=== PATIENT | female | born 1990 | race Caucasian/White ===

== ENCOUNTER 2017-05-27 23:57 | Emergency (ER) | payer MEDICARE, OTHER ==
[~2017-05-27] VITALS: Ht 180.3 cm; Wt 176.4 kg
[~2017-05-27 23:57] MED LIST: ALBU90OI INH; AMLO5 PO; BP MED; CEPH500 PO; CYCL10 PO; Cyclobenzaprine5 MG PO; HYDR1TAB94 PO; IBUP600 PO; IBUP800 PO; Imitrex25 MG PO; LORTAB 7.5-3251 EACH PO; Norco 5-325 Ta1 EACH PO; Pyridium200 MG PO; SUMA25 PO; SUMA6I SC; Zofran Odt4 MG SL
[2017-05-28 02:34] LABS: Source, Urine Clean Catch
[2017-05-28 02:37] LABS: Bilirubin, Urine Neg (Neg); Blood, Urine 3+ (Neg); Glucose Qualitative, Urine 4+ (Neg); Ketones, Urine 1+ (Neg); Leukocyte Esterase, Urine 2+ (Neg); Nitrite, Urine Neg (Neg); Protein, Urine 2+ (Neg); Specific Gravity, Urine 1.025 (1.003-1.022); Urobilinogen, Urine NORM (Normal)
[2017-05-28 02:38] LABS: Appearance, Urine Hazy (Clear); Color, Urine Yellow (P-Yellow)
[2017-05-28 02:45] LABS: Bacteria Mod /hpf; Mucus Light (0-Heavy); Red Blood Cells, Urine 0-2 /hpf (0-2); Squamous Epithelial Cells Mod /hpf (Few)
[2017-05-28] MEDS ORDERED: NYATA15 GM TOP (03:46)
== END 2017-05-28 03:52 | disposition home or self-care (01) ==
LOC: ER 23:57
PROVIDERS: Emergency Medicine
DX: B37.49 Other urogenital candidiasis (principal); Z88.8 Allergy status to other drugs, medicaments and biological substances; Z79.899 Other long term (current) drug therapy
CPT/HCPCS: 81001; 81025; 87086; 99284

== ENCOUNTER → 2017-06-08 | Outpatient (CLI) | payer MEDICARE, OTHER ==
[~2017-06-08] MED LIST changes: +NYATA15 GM TOP
[2017-06-08 15:37] LABS: Specimen Source CERVIX
[2017-06-09 09:55] LABS: Candida species (DNA Probe) Negative (NEGATIVE); G. vaginalis (DNA Probe) Negative (NEGATIVE); T. vaginalis (DNA Probe) Negative (NEGATIVE)
[2017-06-09 13:23] LABS: Source Cervix
== END ==
LOC: LAB 15:02
PROVIDERS: Obstetrics & Gynecology
DX: Z11.3 Encounter for screening for infections with a predominantly sexual mode of transmission (principal); N76.0 Acute vaginitis
CPT/HCPCS: 87480; 87491; 87510; 87591; 87660

== ENCOUNTER → 2017-10-04 | Outpatient (CLI) | payer MEDICARE, OTHER ==
[2017-10-04 17:56] LABS: Protein, Urine Quantitative 7.4 mg/dL (0.0-11.9)
[2017-10-04 17:58] LABS: Microalbumin, Urine Quant. 14.5 mg/L (0.000-20.000)
== END | disposition home or self-care (01) ==
LOC: LAB 13:45 → LAB SHORT 13:45 → LAB FUT 03-31 13:55
PROVIDERS: Internal Medicine Nephrology
DX: N18.2 Chronic kidney disease, stage 2 (mild) (principal); D63.1 Anemia in chronic kidney disease; N25.81 Secondary hyperparathyroidism of renal origin; E55.9 Vitamin D deficiency, unspecified; E78.00 Pure hypercholesterolemia, unspecified; R76.9 Abnormal immunological finding in serum, unspecified; R94.5 Abnormal results of liver function studies; R94.6 Abnormal results of thyroid function studies
CPT/HCPCS: 81050; 82043; 84156

== ENCOUNTER → 2017-11-30 | Outpatient (CLI) | payer MEDICARE, OTHER ==
[2017-11-30 12:59] LABS: U Amphetamine Screen Not Detected; U Barbituate Screen Not Detected; U Benzodiazapine Screen Not Detected; U Buprenorphine Screen Not Detected; U Cannabinoids Screen Not Detected; U Cocaine Screen Not Detected; U Methadone Screen Not Detected; U Methamphetamine Screen Not Detected; U Opiates Screen DETECTED; U Oxycodone Screen Not Detected; U Phencyclidine Screen Not Detected; U Propoxyphene Screen Not Detected
== END | disposition home or self-care (01) ==
LOC: LAB 12:28 → LAB SHORT 12:28
PROVIDERS: Internal Medicine Hematology & Oncology
DX: Z51.81 Encounter for therapeutic drug level monitoring (principal); Z79.899 Other long term (current) drug therapy
CPT/HCPCS: G0480

== ENCOUNTER → 2018-05-24 | Outpatient (CLI) | payer MEDICARE, OTHER ==
[2018-05-24 17:39] LABS: U Amphetamine Screen Not Detected; U Barbituate Screen Not Detected; U Benzodiazapine Screen Not Detected; U Buprenorphine Screen Not Detected; U Cannabinoids Screen Not Detected; U Cocaine Screen Not Detected; U Methadone Screen Not Detected; U Methamphetamine Screen Not Detected; U Opiates Screen Not Detected; U Oxycodone Screen Not Detected; U Phencyclidine Screen Not Detected; U Propoxyphene Screen Not Detected
== END ==
LOC: LAB SHORT 16:43 → LAB 16:43
PROVIDERS: Internal Medicine Hematology & Oncology
DX: Z51.81 Encounter for therapeutic drug level monitoring (principal); Z79.899 Other long term (current) drug therapy

== ENCOUNTER → 2018-08-16 | Outpatient (CLI) | payer MEDICARE, OTHER ==
[2018-08-16 18:25] LABS: U Amphetamine Screen Not Detected; U Barbituate Screen Not Detected; U Benzodiazapine Screen Not Detected; U Buprenorphine Screen Not Detected; U Cannabinoids Screen Not Detected; U Cocaine Screen Not Detected; U Methadone Screen Not Detected; U Methamphetamine Screen Not Detected; U Opiates Screen DETECTED; U Oxycodone Screen Not Detected; U Phencyclidine Screen Not Detected; U Propoxyphene Screen Not Detected
== END | disposition home or self-care (01) ==
LOC: LAB SHORT 16:55 → LAB 16:55
PROVIDERS: Internal Medicine Hematology & Oncology
DX: Z51.81 Encounter for therapeutic drug level monitoring (principal); F11.20 Opioid dependence, uncomplicated; Z79.899 Other long term (current) drug therapy

== ENCOUNTER 2019-04-24 08:00 | Emergency (ER) | payer MEDICARE, OTHER ==
[~2019-04-24] VITALS: Ht 180.3 cm; Wt 152.9 kg
[~2019-04-24 08:00] MED LIST changes: +Prednisone20 MG PO; +Zithromax250 MG PO
[2019-04-24] MEDS ORDERED: CYCL10 PO (09:47)
== END 2019-04-24 09:55 | disposition home or self-care (01) ==
LOC: ER 08:00
DX: S80.02XA Contusion of left knee, initial encounter (principal); Z88.8 Allergy status to other drugs, medicaments and biological substances; Z79.899 Other long term (current) drug therapy; Z79.891 Long term (current) use of opiate analgesic; Z79.52 Long term (current) use of systemic steroids; I10 Essential (primary) hypertension; E11.9 Type 2 diabetes mellitus without complications; E78.00 Pure hypercholesterolemia, unspecified; F17.200 Nicotine dependence, unspecified, uncomplicated; W19.XXXA Unspecified fall, initial encounter
CPT/HCPCS: 73564; 73610; 99283-25

== ENCOUNTER 2019-05-29 01:06 | Emergency (ER) | payer MEDICARE, OTHER ==
[~2019-05-29] VITALS: Ht 180.3 cm; Wt 154.7 kg
[2019-05-29] MEDS ORDERED: BENZ100A PO (02:47)
== END 2019-05-29 03:16 | disposition home or self-care (01) ==
LOC: ER 01:06
DX: J06.9 Acute upper respiratory infection, unspecified (principal); J45.909 Unspecified asthma, uncomplicated; I10 Essential (primary) hypertension; E11.9 Type 2 diabetes mellitus without complications; E78.00 Pure hypercholesterolemia, unspecified; F17.210 Nicotine dependence, cigarettes, uncomplicated; Z88.8 Allergy status to other drugs, medicaments and biological substances; Z79.899 Other long term (current) drug therapy; Z79.51 Long term (current) use of inhaled steroids
CPT/HCPCS: 71046; 94640; 99283-25

== ENCOUNTER → 2020-07-08 | Outpatient (CLI) | payer MEDICARE, OTHER ==
[~2020-07-08] MED LIST changes: +ATOR10 PO; +BENZ100A PO; +Bentyl20 MG PO; +DIPATR PO; +DOXY100 PO; +GLIM2 PO; +METF500 PO; +Prozac20 MG PO
[2020-07-08 15:47] LABS: U Amphetamine Screen Not Detected; U Barbituate Screen Not Detected; U Benzodiazapine Screen Not Detected; U Buprenorphine Screen Not Detected; U Cannabinoids Screen Not Detected; U Cocaine Screen Not Detected; U Methadone Screen Not Detected; U Methamphetamine Screen Not Detected; U Opiates Screen DETECTED; U Oxycodone Screen Not Detected; U Phencyclidine Screen Not Detected; U Propoxyphene Screen Not Detected
== END | disposition home or self-care (01) ==
LOC: PLD 11:20 → LAB SHORT 11:20
PROVIDERS: Internal Medicine Hematology & Oncology
DX: Z51.81 Encounter for therapeutic drug level monitoring (principal); Z79.899 Other long term (current) drug therapy

== ENCOUNTER → 2021-11-25 | Outpatient (CLI) | payer MEDICARE, OTHER ==
[2021-11-25 19:38] LABS: U Amphetamine Screen Not Detected; U Barbituate Screen Not Detected; U Benzodiazapine Screen Not Detected; U Buprenorphine Screen Not Detected; U Cannabinoids Screen Not Detected; U Cocaine Screen Not Detected; U Methadone Screen Not Detected; U Methamphetamine Screen Not Detected; U Opiates Screen DETECTED; U Oxycodone Screen Not Detected; U Phencyclidine Screen Not Detected; U Propoxyphene Screen Not Detected
== END | disposition home or self-care (01) ==
LOC: LAB SHORT 13:29 → LAB 13:29
PROVIDERS: Internal Medicine Hematology & Oncology
DX: Z51.81 Encounter for therapeutic drug level monitoring (principal); Z79.899 Other long term (current) drug therapy
CPT/HCPCS: G0480

== ENCOUNTER → 2022-01-27 | Outpatient (CLI) | payer MEDICARE, OTHER ==
[2022-01-27 19:02] LABS: U Amphetamine Screen Not Detected; U Barbituate Screen Not Detected; U Benzodiazapine Screen Not Detected; U Buprenorphine Screen Not Detected; U Cannabinoids Screen Not Detected; U Cocaine Screen Not Detected; U Methadone Screen Not Detected; U Methamphetamine Screen Not Detected; U Opiates Screen DETECTED; U Oxycodone Screen Not Detected; U Phencyclidine Screen Not Detected; U Propoxyphene Screen Not Detected
== END | disposition home or self-care (01) ==
LOC: LAB SHORT 16:38
PROVIDERS: Internal Medicine Hematology & Oncology
DX: Z51.81 Encounter for therapeutic drug level monitoring (principal); Z79.899 Other long term (current) drug therapy

== ENCOUNTER → 2022-02-26 | Outpatient (CLI) | payer MEDICARE, OTHER ==
[2022-02-26 18:17] LABS: U Amphetamine Screen Not Detected; U Barbituate Screen Not Detected; U Benzodiazapine Screen Not Detected; U Buprenorphine Screen Not Detected; U Cannabinoids Screen Not Detected; U Cocaine Screen Not Detected; U Methadone Screen Not Detected; U Methamphetamine Screen Not Detected; U Opiates Screen DETECTED; U Oxycodone Screen Not Detected; U Phencyclidine Screen Not Detected; U Propoxyphene Screen Not Detected
== END | disposition home or self-care (01) ==
LOC: LAB 16:02 → LAB SHORT 16:02
PROVIDERS: Internal Medicine Hematology & Oncology
DX: Z51.81 Encounter for therapeutic drug level monitoring (principal); Z79.899 Other long term (current) drug therapy
CPT/HCPCS: G0480

== ENCOUNTER → 2022-03-30 | Outpatient (CLI) | payer MEDICARE, OTHER ==
[2022-03-30 18:50] LABS: U Amphetamine Screen Not Detected; U Barbituate Screen Not Detected; U Benzodiazapine Screen Not Detected; U Buprenorphine Screen Not Detected; U Cannabinoids Screen Not Detected; U Cocaine Screen Not Detected; U Methadone Screen Not Detected; U Methamphetamine Screen Not Detected; U Opiates Screen DETECTED; U Oxycodone Screen Not Detected; U Phencyclidine Screen Not Detected; U Propoxyphene Screen Not Detected
== END | disposition home or self-care (01) ==
LOC: LAB 16:56 → LAB SHORT 16:56
PROVIDERS: Internal Medicine Hematology & Oncology
DX: L97.519 Non-pressure chronic ulcer of other part of right foot with unspecified severity (principal); Z79.899 Other long term (current) drug therapy

== ENCOUNTER → 2022-04-30 | Outpatient (CLI) | payer MEDICARE, OTHER ==
[2022-04-30 18:21] LABS: U Amphetamine Screen Not Detected; U Barbituate Screen Not Detected; U Benzodiazapine Screen Not Detected; U Buprenorphine Screen Not Detected; U Cannabinoids Screen Not Detected; U Cocaine Screen Not Detected; U Methadone Screen Not Detected; U Methamphetamine Screen Not Detected; U Opiates Screen DETECTED; U Oxycodone Screen Not Detected; U Phencyclidine Screen Not Detected; U Propoxyphene Screen Not Detected
== END | disposition home or self-care (01) ==
LOC: LAB SHORT 15:07
PROVIDERS: Internal Medicine Hematology & Oncology
DX: Z51.81 Encounter for therapeutic drug level monitoring (principal); Z79.899 Other long term (current) drug therapy

== ENCOUNTER → 2022-06-05 | Outpatient (CLI) | payer MEDICARE, OTHER ==
[2022-06-05 18:42] LABS: U Amphetamine Screen Not Detected; U Barbituate Screen Not Detected; U Benzodiazapine Screen Not Detected; U Buprenorphine Screen Not Detected; U Cannabinoids Screen Not Detected; U Cocaine Screen Not Detected; U Methadone Screen Not Detected; U Methamphetamine Screen Not Detected; U Opiates Screen DETECTED; U Oxycodone Screen DETECTED; U Phencyclidine Screen Not Detected; U Propoxyphene Screen Not Detected
== END | disposition home or self-care (01) ==
LOC: LAB SHORT 15:37
PROVIDERS: Internal Medicine Hematology & Oncology
DX: Z51.81 Encounter for therapeutic drug level monitoring (principal); Z79.899 Other long term (current) drug therapy

== ENCOUNTER → 2022-07-10 | Outpatient (CLI) | payer MEDICARE, OTHER ==
[2022-07-10 15:58] LABS: U Amphetamine Screen Not Detected; U Barbituate Screen Not Detected; U Benzodiazapine Screen Not Detected; U Buprenorphine Screen Not Detected; U Cannabinoids Screen Not Detected; U Cocaine Screen Not Detected; U Methadone Screen Not Detected; U Methamphetamine Screen Not Detected; U Opiates Screen DETECTED; U Oxycodone Screen Not Detected; U Phencyclidine Screen Not Detected; U Propoxyphene Screen Not Detected
== END | disposition home or self-care (01) ==
LOC: LAB SHORT 12:13
PROVIDERS: Internal Medicine Hematology & Oncology
DX: Z51.81 Encounter for therapeutic drug level monitoring (principal); Z79.899 Other long term (current) drug therapy

== ENCOUNTER → 2022-08-13 | Outpatient (CLI) | payer MEDICARE, OTHER ==
[2022-08-13 20:02] LABS: U Amphetamine Screen Not Detected; U Barbituate Screen Not Detected; U Benzodiazapine Screen Not Detected; U Buprenorphine Screen Not Detected; U Cannabinoids Screen Not Detected; U Cocaine Screen Not Detected; U Methadone Screen Not Detected; U Methamphetamine Screen Not Detected; U Opiates Screen DETECTED; U Oxycodone Screen Not Detected; U Phencyclidine Screen Not Detected; U Propoxyphene Screen Not Detected
== END | disposition home or self-care (01) ==
LOC: LAB 17:05 → LAB SHORT 17:05
PROVIDERS: Internal Medicine Hematology & Oncology
DX: Z51.81 Encounter for therapeutic drug level monitoring (principal); Z79.899 Other long term (current) drug therapy

== ENCOUNTER → 2022-10-15 | Outpatient (CLI) | payer MEDICARE, OTHER ==
[2022-10-15 19:38] LABS: BASOPHILS ABSOLUTE AUTO 0.09 K/mm3 (0.00-0.23); BASOPHILS PERCENT AUTO 1 % (0-2); EOSINOPHILS ABSOLUTE AUTO 0.34 K/mm3 (0.00-0.68); EOSINOPHILS PERCENT AUTO 4 % (0-6); Hematocrit 46.2 % (33.0-51.0); Hemoglobin 15.2 g/dL (11.5-16.0); IMMATURE GRAN ABSOLUTE AUTO 0.03 K/mm3 (0.00-0.10); IMMATURE GRAN PERCENT AUTO 0 % (0-1); LYMPHOCYTES ABSOLUTE AUTO 4.06 K/mm3 (0.84-5.20); LYMPHOCYTES PERCENT AUTO 42 % (21-46); MONOCYTES ABSOLUTE AUTO 0.47 K/mm3 (0.16-1.47); MONOCYTES PERCENT AUTO 5 % (4-13); Mean Corpuscular HGB 29.7 pg (26.0-34.0); Mean Corpuscular HGB Conc 32.9 g/dL (31.5-36.5); Mean Corpuscular Volume 90 fL (80-100); Mean Platelet Volume 12.2 fL (9.1-12.4); NEUTROPHILS ABSOLUTE AUTO 4.64 K/mm3 (1.96-9.15); NEUTROPHILS PERCENT AUTO 48 % (41-73); Platelet Count 205 K/mm3 (150-400); RDW Coefficient Variation 11.8 % (11.7-14.2); RDW Standard Deviation 39.3 fL (35.1-46.3); Red Blood Cell Count 5.12 M/mm3 (3.80-5.20); White Blood Cell Count 9.63 K/mm3 (4.00-11.30)
[2022-10-15 19:48] LABS: Alanine Aminotransfer (ALT/SGP 19 U/L (12-78); Albumin, Blood 3.5 g/dL (3.4-5.0); Albumin/Globulin Ratio 0.9 (0.8-1.8); Alk Phos 59 U/L (50-136); Anion Gap 7 mmol/L (6-16); Aspartate Aminotrans (AST/SGOT 10 U/L (12-37); Bilirubin, Total 0.3 mg/dL (0.1-1.0); Blood Urea Nitrogen 12 mg/dL (8-24); CHOL/HDL RATIO 7.2; CO2, Blood 25 mmol/L (21-32); Chloride, Blood 108 mmol/L (98-108); Cholesterol 236 mg/dL (50-200); Glomerular Filtration Rate 127 (60-); Glucose, Blood 233 mg/dL (70-99); HDL Cholesterol 33 mg/dL (>39); LDL/HDL RATIO 4.7; Low Density Lipoprotein Chol 156 mg/dL (0-110); Phosphorus, Blood 3.8 mg/dL (2.5-4.9); Potassium, Blood 4.5 mmol/L (3.5-5.5); Sodium, Blood 140 mmol/L (136-145); Total Protein, Blood 7.5 g/dL (6.4-8.2); Triglycerides 233 mg/dL (30-140); Very Low Density Lipoprot Chol 46 mg/dL (6-28)
== END | disposition home or self-care (01) ==
LOC: LAB 18:43 → LAB SHORT 18:43
PROVIDERS: Internal Medicine Hematology & Oncology
DX: E11.65 Type 2 diabetes mellitus with hyperglycemia (principal); E78.2 Mixed hyperlipidemia
CPT/HCPCS: 80053; 80061; 83036; 84100; 85025

== ENCOUNTER → 2022-11-12 | Outpatient (CLI) | payer MEDICARE, OTHER ==
[2022-11-12 19:27] LABS: U Amphetamine Screen Not Detected; U Barbituate Screen Not Detected; U Benzodiazapine Screen Not Detected; U Buprenorphine Screen Not Detected; U Cannabinoids Screen Not Detected; U Cocaine Screen Not Detected; U Methadone Screen Not Detected; U Methamphetamine Screen Not Detected; U Opiates Screen DETECTED; U Oxycodone Screen Not Detected; U Phencyclidine Screen Not Detected; U Propoxyphene Screen Not Detected
== END ==
LOC: LAB SHORT 18:11 → LAB 18:11
PROVIDERS: Internal Medicine Hematology & Oncology
DX: Z51.81 Encounter for therapeutic drug level monitoring (principal); Z79.899 Other long term (current) drug therapy
CPT/HCPCS: G0480

== ENCOUNTER 2023-01-25 23:57 | Emergency (ER) | payer MEDICARE, OTHER ==
[~2023-01-25] VITALS: Ht 180.3 cm; Wt 136.5 kg
[2023-01-26 01:36] LABS: BASOPHILS ABSOLUTE AUTO 0.08 K/mm3 (0.00-0.23); BASOPHILS PERCENT AUTO 1 % (0-2); EOSINOPHILS ABSOLUTE AUTO 0.28 K/mm3 (0.00-0.68); EOSINOPHILS PERCENT AUTO 2 % (0-6); Hematocrit 43.3 % (33.0-51.0); Hemoglobin 14.7 g/dL (11.5-16.0); IMMATURE GRAN ABSOLUTE AUTO 0.05 K/mm3 (0.00-0.10); IMMATURE GRAN PERCENT AUTO 0 % (0-1); LYMPHOCYTES ABSOLUTE AUTO 4.09 K/mm3 (0.84-5.20); LYMPHOCYTES PERCENT AUTO 31 % (21-46); MONOCYTES ABSOLUTE AUTO 0.62 K/mm3 (0.16-1.47); MONOCYTES PERCENT AUTO 5 % (4-13); Mean Corpuscular HGB 30.6 pg (26.0-34.0); Mean Corpuscular HGB Conc 33.9 g/dL (31.5-36.5); Mean Corpuscular Volume 90 fL (80-100); Mean Platelet Volume 11.4 fL (9.1-12.4); NEUTROPHILS ABSOLUTE AUTO 8.15 K/mm3 (1.96-9.15); NEUTROPHILS PERCENT AUTO 61 % (41-73); Platelet Count 242 K/mm3 (150-400); RDW Coefficient Variation 11.9 % (11.7-14.2); RDW Standard Deviation 39.3 fL (35.1-46.3); White Blood Cell Count 13.27 K/mm3 (4.00-11.30)
[2023-01-26 01:54] LABS: Albumin, Blood 3.3 g/dL (3.4-5.0); Albumin/Globulin Ratio 0.7 (0.8-1.8); Bilirubin, Total 0.2 mg/dL (0.1-1.0); Bun/Creatinine Ratio 20.8 (12.0-20.0); Calcium, Blood 8.7 mg/dL (8.5-10.1); Creatinine, Blood 0.63 mg/dL (0.40-1.00); Globulin, Blood 4.7 g/dL (2.2-4.0)
[2023-01-26] MEDS ORDERED: Bactrim Ds Tab1 EACH PO (04:42)
[2023-01-26 05:07] VITALS: BP 154/85
== END 2023-01-26 05:05 | disposition home or self-care (01) ==
LOC: ER 23:57
PROVIDERS: Student in an Organized Health Care Education/Training Program
DX: E11.621 Type 2 diabetes mellitus with foot ulcer (principal); L97.519 Non-pressure chronic ulcer of other part of right foot with unspecified severity; Z88.8 Allergy status to other drugs, medicaments and biological substances; Z79.899 Other long term (current) drug therapy; Z79.84 Long term (current) use of oral hypoglycemic drugs; I10 Essential (primary) hypertension; E78.00 Pure hypercholesterolemia, unspecified; F17.210 Nicotine dependence, cigarettes, uncomplicated
CPT/HCPCS: 73630; 73701; 80053; 83605; 84145; 85025; 85651; 96360-59; 99284-25; A9270; J7120; Q9967

== ENCOUNTER → 2023-03-16 | Outpatient (CLI) | payer MEDICARE, OTHER ==
[~2023-03-16] MED LIST changes: +Bactrim Ds Tab1 EACH PO
[2023-03-17 12:39] LABS: U Amphetamine Screen Not Detected; U Barbituate Screen Not Detected; U Benzodiazapine Screen Not Detected; U Buprenorphine Screen Not Detected; U Cannabinoids Screen Not Detected; U Cocaine Screen Not Detected; U Methadone Screen Not Detected; U Methamphetamine Screen Not Detected; U Opiates Screen DETECTED; U Oxycodone Screen DETECTED; U Phencyclidine Screen Not Detected; U Propoxyphene Screen Not Detected
== END ==
LOC: LAB SHORT 12:00 → LAB 12:00
PROVIDERS: Internal Medicine Hematology & Oncology
DX: L97.519 Non-pressure chronic ulcer of other part of right foot with unspecified severity (principal); R30.0 Dysuria; Z79.899 Other long term (current) drug therapy
CPT/HCPCS: 87086

== ENCOUNTER → 2023-05-19 | Outpatient (CLI) | payer MEDICARE, OTHER ==
[2023-05-19 19:28] LABS: U Amphetamine Screen Not Detected; U Barbituate Screen Not Detected; U Benzodiazapine Screen Not Detected; U Buprenorphine Screen Not Detected; U Cannabinoids Screen Not Detected; U Cocaine Screen Not Detected; U Methadone Screen Not Detected; U Methamphetamine Screen Not Detected; U Opiates Screen DETECTED; U Oxycodone Screen Not Detected; U Phencyclidine Screen Not Detected
== END ==
LOC: LAB SHORT 17:25 → LAB 17:25
PROVIDERS: Internal Medicine Hematology & Oncology
DX: L97.519 Non-pressure chronic ulcer of other part of right foot with unspecified severity (principal); Z79.899 Other long term (current) drug therapy

== ENCOUNTER → 2023-06-16 | Outpatient (CLI) | payer MEDICARE, OTHER ==
[2023-06-16 16:32] LABS: U Amphetamine Screen Not Detected; U Barbituate Screen Not Detected; U Benzodiazapine Screen Not Detected; U Buprenorphine Screen Not Detected; U Cannabinoids Screen Not Detected; U Cocaine Screen Not Detected; U Methadone Screen Not Detected; U Methamphetamine Screen Not Detected; U Opiates Screen DETECTED; U Oxycodone Screen Not Detected; U Phencyclidine Screen Not Detected
== END | disposition home or self-care (01) ==
LOC: LAB SHORT 11:01 → LAB 11:01
PROVIDERS: Internal Medicine Hematology & Oncology
DX: Z51.81 Encounter for therapeutic drug level monitoring (principal); Z79.899 Other long term (current) drug therapy

== ENCOUNTER → 2023-08-30 | Outpatient (CLI) | payer MEDICARE ==
[2023-08-30 20:17] LABS: U Amphetamine Screen Not Detected; U Barbituate Screen Not Detected; U Benzodiazapine Screen Not Detected; U Buprenorphine Screen Not Detected; U Cannabinoids Screen Not Detected; U Cocaine Screen Not Detected; U Methadone Screen Not Detected; U Methamphetamine Screen Not Detected; U Opiates Screen DETECTED; U Oxycodone Screen Not Detected; U Phencyclidine Screen Not Detected
== END | disposition home or self-care (01) ==
LOC: LAB 15:30 → LAB SHORT 15:30
PROVIDERS: Internal Medicine Hematology & Oncology
DX: Z51.81 Encounter for therapeutic drug level monitoring (principal); Z79.899 Other long term (current) drug therapy

== ENCOUNTER → 2023-11-04 | Outpatient (CLI) | payer MEDICARE ==
[2023-11-04 18:33] LABS: U Amphetamine Screen Not Detected; U Barbituate Screen Not Detected; U Benzodiazapine Screen Not Detected; U Buprenorphine Screen Not Detected; U Cannabinoids Screen Not Detected; U Cocaine Screen Not Detected; U Methadone Screen Not Detected; U Methamphetamine Screen Not Detected; U Opiates Screen DETECTED; U Oxycodone Screen Not Detected; U Phencyclidine Screen Not Detected
== END ==
LOC: LAB SHORT 14:43 → LAB 14:43
PROVIDERS: Internal Medicine Hematology & Oncology
DX: Z51.81 Encounter for therapeutic drug level monitoring (principal); Z79.899 Other long term (current) drug therapy

== ENCOUNTER → 2024-02-03 | Outpatient (CLI) | payer MEDICARE ==
[2024-02-04 19:54] LABS: U Amphetamine Screen Not Detected; U Barbituate Screen Not Detected; U Benzodiazapine Screen Not Detected; U Buprenorphine Screen Not Detected; U Cannabinoids Screen Not Detected; U Cocaine Screen Not Detected; U Methadone Screen Not Detected; U Methamphetamine Screen Not Detected; U Opiates Screen DETECTED; U Oxycodone Screen Not Detected; U Phencyclidine Screen Not Detected
== END ==
LOC: LAB SHORT 18:06 → LAB 18:06
PROVIDERS: Internal Medicine Hematology & Oncology
DX: Z51.81 Encounter for therapeutic drug level monitoring (principal); Z79.899 Other long term (current) drug therapy; E11.65 Type 2 diabetes mellitus with hyperglycemia; G89.29 Other chronic pain

== ENCOUNTER → 2024-04-19 | Outpatient (CLI) | payer MEDICARE ==
[2024-04-20 14:44] LABS: U Amphetamine Screen Not Detected; U Barbituate Screen Not Detected; U Benzodiazapine Screen Not Detected; U Buprenorphine Screen Not Detected; U Cannabinoids Screen Not Detected; U Cocaine Screen Not Detected; U Methadone Screen Not Detected; U Methamphetamine Screen Not Detected; U Opiates Screen DETECTED; U Oxycodone Screen Not Detected; U Phencyclidine Screen Not Detected
== END | disposition home or self-care (01) ==
LOC: LAB 16:30 → LAB SHORT 16:30
PROVIDERS: Internal Medicine Hematology & Oncology
DX: E11.65 Type 2 diabetes mellitus with hyperglycemia (principal); Z79.899 Other long term (current) drug therapy

== ENCOUNTER → 2024-05-25 | Outpatient (CLI) | payer MEDICARE ==
[2024-05-25 19:28] LABS: U Amphetamine Screen Not Detected; U Barbituate Screen Not Detected; U Benzodiazapine Screen Not Detected; U Buprenorphine Screen Not Detected; U Cannabinoids Screen Not Detected; U Cocaine Screen Not Detected; U Methadone Screen Not Detected; U Methamphetamine Screen Not Detected; U Opiates Screen DETECTED; U Oxycodone Screen Not Detected; U Phencyclidine Screen Not Detected
== END ==
LOC: LAB 18:38 → LAB SHORT 18:38
PROVIDERS: Internal Medicine Hematology & Oncology
DX: Z51.81 Encounter for therapeutic drug level monitoring (principal); Z79.899 Other long term (current) drug therapy

== ENCOUNTER 2024-08-28 16:20 | Inpatient (IN) | payer MEDICARE, OTHER ==
[~2024-08-28] VITALS: Ht 180.3 cm; Wt 142.3 kg
[2024-08-28 17:10] LABS: Hematocrit 33.4 % (33.0-51.0); Mean Corpuscular HGB 28.3 pg (26.0-34.0); Mean Corpuscular HGB Conc 32.9 g/dL (31.5-36.5); Mean Corpuscular Volume 86 fL (80-100); Mean Platelet Volume 12.1 fL (9.1-12.4); NRBC ABSOLUTE 0.07 K/mm3 (0.00-0.02); NRBC Auto 0.4 /100 WBC (0.0-0.2); Platelet Count 258 K/mm3 (150-400); RDW Coefficient Variation 15.1 % (11.7-14.2); RDW Standard Deviation 47.1 fL (35.1-46.3); Red Blood Cell Count 3.89 M/mm3 (3.80-5.20); White Blood Cell Count 16.64 K/mm3 (4.00-11.30)
[2024-08-28] MEDS ORDERED: ATOR40TA PO (17:24)
[2024-08-28] MEDS ORDERED: METFORMIN HCL500 M2 PO (17:25)
[2024-08-28] MEDS ORDERED: FLUC200 PO (17:26)
[2024-08-28] MEDS ORDERED: HYDROCODONE-AC1 EAC7 PO (17:26)
[2024-08-28] MEDS ORDERED: Cefepime HCl 2,000 MG in NS 100 ML IV ONE (17:30)
[2024-08-28] MEDS ORDERED: Lactated Ringer's 1,000 ML IV SCH (17:30)
[2024-08-28] MEDS ORDERED: Vancomycin HCL 2,500 MG in NS 500 ML IV ONE (17:35)
[2024-08-28 17:49] LABS: Albumin, Blood 1.3 g/dL (3.4-5.0); Albumin/Globulin Ratio 0.2 (0.8-1.8); Bilirubin, Total 0.6 mg/dL (0.1-1.0); Bun/Creatinine Ratio 57.6 (12.0-20.0); Calcium, Blood 8.1 mg/dL (8.5-10.1); Creatinine, Blood 0.38 mg/dL (0.40-1.00); Globulin, Blood 6.2 g/dL (2.2-4.0); Phosphorus, Blood 3.3 mg/dL (2.5-4.9); Potassium, Blood 4.3 mmol/L (3.5-5.5); Total Protein, Blood 7.5 g/dL (6.4-8.2)
[2024-08-28 17:55] LABS: Base Excess Venous 7.6 mmol/L; Bicarbonate Venous 30.9 mmol/L (24.0-30.0); PCO2 Venous 37.4 mmHg (38-42); pH Blood Venous 7.52 (7.34-7.37)
[2024-08-28 17:56] LABS: International Normalized Ratio 1.61; Prothrombin Time Results 16.6 Sec (9.7-11.5)
[2024-08-28] MEDS ORDERED: HYDROmorphone HCl/Pf 1MG SYR IV ONE (19:20)
[2024-08-28 19:35] LABS: BAND PERCENT MAN 15 % (0-8); BASOPHILS PERCENT MAN 0 % (0-2); EOSINOPHILS ABSOLUTE MAN 0.16 K/mm3 (0.00-0.68); EOSINOPHILS PERCENT MAN 1 % (0-6); LYMPHOCYTES ABSOLUTE MAN 1.99 K/mm3 (0.84-5.20); LYMPHOCYTES PERCENT MAN 12 % (21-46); METAMYELOCYTE ABSOLUTE MAN 1.16 K/mm3 (0.00-0.00); METAMYELOCYTE PERCENT MAN 7 % (0-0); MONOCYTES ABSOLUTE MAN 0.33 K/mm3 (0.16-1.47); MONOCYTES PERCENT MAN 2 % (4-13); MYELOCYTE ABSOLUTE MAN 0.66 K/mm3 (0.00-0.00); MYELOCYTE PERCENT MAN 4 % (0-0); NEUTROPHILS ABSOLUTE MAN 12.31 K/mm3 (1.96-9.15); SEG NEUTROPHILS PERCENT MAN 59 % (41-73); TOTAL CELLS COUNTED 100
[2024-08-28] MEDS ORDERED: NS 1,000 ML IV SCH (20:40)
[2024-08-28] MEDS ORDERED: FentaNYL Citrate 50 MCG/ML 2 ML Injection IV PRN (20:40)
[2024-08-28] MEDS ORDERED: Albumin (Human) 25gm/100ml 100 ML IV ONE (20:55)
[2024-08-28] MEDS ORDERED: Insulin Glargine-Yfgn 100 Unit/mL 3 ML SYR SC SCH (21:00)
[2024-08-28 22:00] VITALS: BP 132/85
[2024-08-28 22:36] LABS: Source, Urine Clean Catch
[2024-08-28 22:40] LABS: Bilirubin, Urine Neg (Neg); Blood, Urine 1+ (Neg); Glucose Qualitative, Urine 4+ (Neg); Ketones, Urine 2+ (Neg); Leukocyte Esterase, Urine Neg (Neg); Nitrite, Urine Neg (Neg); Protein, Urine 1+ (Neg); Specific Gravity, Urine 1.015 (1.003-1.022); Urobilinogen, Urine 1+ (Normal)
[2024-08-28 22:52] LABS: Appearance, Urine Clear (Clear); Color, Urine Yellow (P-Yellow)
[2024-08-28 22:53] LABS: Bacteria Not Seen /hpf; Red Blood Cells, Urine 0-2 /hpf (0-2); Squamous Epithelial Cells Not Seen /hpf (Few); White Blood Cells, Urine Not Seen /hpf (0-5)
[2024-08-28] MEDS ORDERED: Albuterol HFA200 ACT/6.7 GM INH INH PRN (23:45)
[2024-08-28 23:46] VITALS: BP 142/60
[2024-08-29] VITALS (8 sets, daily range): BP systolic 102–141; BP diastolic 49–65
[2024-08-29] MEDS ORDERED: Piperacillin/Tazobactam Sod 4.5 GM in NS 100 ML IV SCH
[2024-08-29] MEDS ORDERED: FentaNYL Citrate 50 MCG/ML 2 ML Injection IV PRN (03:15)
[2024-08-29] MEDS ORDERED: FentaNYL Citrate 50 MCG/ML 2 ML Injection IV ONE (03:15)
[2024-08-29 03:43] LABS: Hemoglobin 8.9 g/dL (11.5-16.0); Mean Corpuscular Volume 85 fL (80-100); NRBC ABSOLUTE 0.05 K/mm3 (0.00-0.02); NRBC Auto 0.3 /100 WBC (0.0-0.2); Platelet Count 208 K/mm3 (150-400); RDW Standard Deviation 46.6 fL (35.1-46.3); Red Blood Cell Count 3.18 M/mm3 (3.80-5.20); White Blood Cell Count 15.53 K/mm3 (4.00-11.30)
[2024-08-29] MEDS ORDERED: HYDROmorphone HCl/Pf 1MG SYR IV PRN (04:05)
[2024-08-29 04:07] LABS: BAND PERCENT MAN 11 % (0-8); BASOPHILS PERCENT MAN 0 % (0-2); EOSINOPHILS PERCENT MAN 0 % (0-6); LYMPHOCYTES % ATYPICAL MANUAL 1 % (0-0); LYMPHOCYTES ABSOLUTE MAN 1.86 K/mm3 (0.84-5.20); LYMPHOCYTES PERCENT MAN 11 % (21-46); METAMYELOCYTE ABSOLUTE MAN 0.15 K/mm3 (0.00-0.00); METAMYELOCYTE PERCENT MAN 1 % (0-0); MONOCYTES ABSOLUTE MAN 0.46 K/mm3 (0.16-1.47); MONOCYTES PERCENT MAN 3 % (4-13); MYELOCYTE ABSOLUTE MAN 0.46 K/mm3 (0.00-0.00); MYELOCYTE PERCENT MAN 3 % (0-0); NEUTROPHILS ABSOLUTE MAN 12.57 K/mm3 (1.96-9.15); SEG NEUTROPHILS PERCENT MAN 70 % (41-73); TOTAL CELLS COUNTED 100
[2024-08-29] MEDS ORDERED: AMOX-CLAV 875-1 EAC5 PO (04:07)
[2024-08-29 04:08] LABS: Albumin, Blood 1.4 g/dL (3.4-5.0); Albumin/Globulin Ratio 0.3 (0.8-1.8); Bilirubin, Total 0.7 mg/dL (0.1-1.0); Bun/Creatinine Ratio 57.9 (12.0-20.0); Calcium, Blood 7.3 mg/dL (8.5-10.1); Creatinine, Blood 0.36 mg/dL (0.40-1.00); Globulin, Blood 5.1 g/dL (2.2-4.0); Potassium, Blood 3.8 mmol/L (3.5-5.5); Total Protein, Blood 6.5 g/dL (6.4-8.2)
[2024-08-29] MEDS ORDERED: Norco 10-325 T1 EACH PO (04:08)
[2024-08-29] MEDS ORDERED: FLUC200 PO (04:10)
--- NOTE | 2024-08-29 05:06 | NUR ---
NEW ADMIT TONIGHT FROM ER. PATIENT COMES IN WITH SEPSIS, SOB, AND MANY DIABETIC ULCER WOUNDS FROM SHOULDERS TO FEET. PATIENT IS ALERT, ORIENTATED. ABLE TO MAKE NEEDS KNOWN. PICTURES OF ALL WOUNDS TAKEN (SEE PAPER CHART). PATIENT EXPERIENCING LOW BACK PAIN AND RIGHT SHOULDER PAIN. EXTENSIVE WOUND CARE. NON AMBULATORY DUE TO FOOT WOUNDS. CALDWELL PLACED. O2 1-2 LITERS PER NC. DILAUDID IV FOR PAIN. NPO IVF INFUSING PLAN FOR ORTHOPEDIC AND PODIATRY DOCTORS TO SEE PATIENT TODAY. CONTNUE CARE
[2024-08-29] MEDS ORDERED: Insulin Human Lispro 100 Units/ML 3ML Syringe SC SCH ×2 (07:30→11:30)
[2024-08-29] MEDS ORDERED: NS 1,000 ML IV SCH (08:40)
[2024-08-29 09:21] LABS: International Normalized Ratio 1.99; Prothrombin Time Results 20.2 Sec (9.7-11.5)
[2024-08-29] MEDS ORDERED: Vancomycin HCL 1,750 MG in NS 500 ML IV SCH (10:00)
--- NOTE | 2024-08-29 10:56 | NUR ---
MED CALLED: THIS RN IS BREAKING PRIMARY, MICRO CALLED AND BLOOD CULTURES WERE POSITIVE. NO NEW ORDERS PER MD SHE IS COVERED WITH ANTIBIOTICS ON EMAR.
[2024-08-29] MEDS ORDERED: Phytonadione 5 MG Tab PO STA (11:33)
[2024-08-29 14:45] LABS: Percent Saturation 21.1 % (15.0-50.0); Prealbumin, Blood 4.1 mg/dL (20.0-40.0)
--- NOTE | 2024-08-29 17:33 | NUR ---
SHIFT SUMMARY: PT A&OX4 ANXIOUS BUT COOPERATIVE. BEDREST REPOSITIONS SELF WITH Q2 ROUNDING. CALDWELL IN PLACE DRAINING TO GRAVITY. PT REPORTS PAIN IN RIGHT SHOULDER. MEDICATED PER EMAR. MULITPLE WOUNDS ON BLE. SEE PATIENTS PICTURES. WOUND DRESSING CHANGED ON RLE. PT TOLERATED WELL. SINUS TACHYCARDIA 100S 2L NC MAINTAINING >92%. BED IS LOW AND LOCKED AND CALLS APPROPRIATELY. PLAN OF CARE ONGOING.
[2024-08-29] MEDS ORDERED: Metoclopramide HCl 5MG / ML 2ML Vial IV PRN (17:45)
[2024-08-29] MEDS ORDERED: OxyCODONE 5 mg/Acetamin 325 mg TABLET PO PRN (18:20)
[2024-08-29] MEDS ORDERED: Lactobacil 2-S.Thermo-Bifido 1 1 Cap PO SCH (21:00)
[2024-08-29] MEDS ORDERED: Protein Supplement 30 ML UD PO SCH (21:00)
[2024-08-29] MEDS ORDERED: Arginine/Glutamine/Calcium Hmb 1 Packet PO SCH (21:00)
[2024-08-29] MEDS ORDERED: Sennosides 8.6 MG Tab PO SCH (21:00)
[2024-08-29] MEDS ORDERED: Polyethylene Glycol 3350 17 gm PO SCH (21:00)
[2024-08-30] VITALS (13 sets, daily range): BP systolic 90–142; BP diastolic 36–88
[2024-08-30 03:40] LABS: Hematocrit 25.5 % (33.0-51.0); Hemoglobin 8.4 g/dL (11.5-16.0); Mean Corpuscular HGB 28.5 pg (26.0-34.0); Mean Corpuscular HGB Conc 32.9 g/dL (31.5-36.5); Mean Corpuscular Volume 86 fL (80-100); Mean Platelet Volume 11.4 fL (9.1-12.4); NRBC ABSOLUTE 0.07 K/mm3 (0.00-0.02); NRBC Auto 0.6 /100 WBC (0.0-0.2); Platelet Count 168 K/mm3 (150-400); RDW Coefficient Variation 15.1 % (11.7-14.2); RDW Standard Deviation 47.9 fL (35.1-46.3); Red Blood Cell Count 2.95 M/mm3 (3.80-5.20); White Blood Cell Count 11.71 K/mm3 (4.00-11.30)
[2024-08-30 03:54] LABS: International Normalized Ratio 1.09; Prothrombin Time Results 11.6 Sec (9.7-11.5)
[2024-08-30 04:00] LABS: Albumin, Blood 1.2 g/dL (3.4-5.0); Anion Gap 11 mmol/L (3-11); Blood Urea Nitrogen 20 mg/dL (8-24); CO2, Blood 29 mmol/L (21-32); Calcium, Blood 7.1 mg/dL (8.5-10.1); Chloride, Blood 93 mmol/L (98-108); Creatinine, Blood 0.44 mg/dL (0.40-1.00); Glomerular Filtration Rate 129 (60-); Glucose, Blood 230 mg/dL (70-99); Magnesium, Blood 1.9 mg/dL (1.6-2.4); Phosphorus, Blood 2.3 mg/dL (2.5-4.9); Potassium, Blood 3.4 mmol/L (3.5-5.5); Sodium, Blood 130 mmol/L (136-145)
--- NOTE | 2024-08-30 04:09 | NUR ---
NOTIFIED OF MORNING LAB VALUES, K+ TRENDING DOWN, SEE LAB VALUES, DR WYNN STATED SHE WILL LOOK INTO PATIENTS CHART AND NOTIFY US OF ANY ORDERS.
[2024-08-30 04:10] LABS: BAND PERCENT MAN 6 % (0-8); BASOPHILS PERCENT MAN 0 % (0-2); EOSINOPHILS ABSOLUTE MAN 0.11 K/mm3 (0.00-0.68); EOSINOPHILS PERCENT MAN 1 % (0-6); LYMPHOCYTES ABSOLUTE MAN 1.63 K/mm3 (0.84-5.20); LYMPHOCYTES PERCENT MAN 14 % (21-46); METAMYELOCYTE ABSOLUTE MAN 0.11 K/mm3 (0.00-0.00); METAMYELOCYTE PERCENT MAN 1 % (0-0); MONOCYTES ABSOLUTE MAN 0.23 K/mm3 (0.16-1.47); MONOCYTES PERCENT MAN 2 % (4-13); MYELOCYTE ABSOLUTE MAN 0.35 K/mm3 (0.00-0.00); MYELOCYTE PERCENT MAN 3 % (0-0); NEUTROPHILS ABSOLUTE MAN 9.25 K/mm3 (1.96-9.15); SEG NEUTROPHILS PERCENT MAN 73 % (41-73); TOTAL CELLS COUNTED 100
--- NOTE | 2024-08-30 06:10 | NUR ---
SHIFT SUMMARY PT A&O X4, ABLE TO MAKE NEEDS KNOWN. VSS, AFEBRILE, SPO2 >90% ON RA, TELE SHOWS SINUS TACH 100S. SHE DENIES CP OR SOB. PAIN OF RIGHT SHOULDER MEDICATED PER EMAR. CALDWELL DRAINING DARK URINE TO GRAVITY. CALDWELL REQUIRED IRRIGATION DUE TO EXCESSIVE SEDIMENT. RECTAL TUBE PLACED PER ORDERS FOR FREQUENT LOOSE STOOLS. PT IS RESTING IN BED, CALL LIGHT IN REACH, BREATHING EVEN AND UNLABORED.
[2024-08-30] MEDS ORDERED: Potassium Phosphate Dibasic 30 MM in Dextrose 5% 500 ML IV STA (08:43)
[2024-08-30] MEDS ORDERED: Protein Supplement 30 ML UD PO SCH (09:00)
[2024-08-30] MEDS ORDERED: Enoxaparin 40 MG/0.4 ML SYR SC SCH (09:00)
[2024-08-30] MEDS ORDERED: Folic Acid 1 MG TAB PO SCH (09:00)
[2024-08-30] MEDS ORDERED: Thiamine HCl 100 MG Tab PO SCH (09:00)
[2024-08-30] MEDS ORDERED: Multivitamins/Minerals TAB PO SCH (09:00)
[2024-08-30 10:57] LABS: Vancomycin, Trough 16.6 ug/mL (5.0-10.0)
[2024-08-30] MEDS ORDERED: Metoclopramide HCl 5MG / ML 2ML Vial IV SCH (11:30)
--- NOTE | 2024-08-30 14:14 | NUR ---
WOUND CARE COMPLETED. Pt has two large ulcers with surrounding excoriated skin on buttocks and perianal area. It was cleansed of small amount of stool which was around the anus and rectal tube. This was painful for the patient. Ulcers were cleansed with wound cleaser and patted dry with gauze and covered with mepilex dressings. Red spots noted on her hands with some pustules were left open to air. Multiple ulcers on the right lower leg, some small round ulcers with yellow slough noted in the bed and one very large ulcer on the plantar surface near toes with black eschar. All were cleansed with wound cleanser, dried with gauze. All were covered with xeroform vaseline gauze, this was covered with gauze and secured with kerlix dressing. The pt tolerated it well. There were also black eschar and peeling skin noted in between the toes of the right foot which were dressed in the same way as the rest of the right foot. Brisk cap refill and palpable pulse was noted on the right foot. Pt did not have nearly as much pain in the right foot as she had on the wounds of the buttocks. Feet were elevated on pillows to relieve pressure and reduce swelling.
[2024-08-30] MEDS ORDERED: ZINC OXIDE/PETROLATUM, YELLOW 1 APPLIC/71 GM PASTE TOP PRN (15:35)
--- NOTE | 2024-08-30 15:39 | NUR ---
Pt returned from radiology with accordion drain in place on the right upper chest. Draining opaque beige/astudillo colored liquid. Pt states sore. The site is without bleeding, bruising and no additional swelling. Pt is provided with food and drink.
[2024-08-30] MEDS ORDERED: Atorvastatin 40 MG Tab PO SCH (21:00)
--- NOTE | 2024-08-31 00:06 | NUR ---
SHIFT UPDATE- NO ACUTE CHANGES SURGICAL SITE INFECTION PREVENTION PACKET COMPLETED
[2024-08-31 04:37] VITALS: BP 123/66
--- NOTE | 2024-08-31 05:13 | NUR ---
DURING REPOSITIONING PATIENT THOUGHT NURSING STAFF WAS COMING IN TO "CUT OFF MY LEG". PT ENDED UP PULLING AT MIDLINE AND PIV. RN NOW UNABLE TO DRAW LABS OR CONTINUE INFUSIONS. PT IS REFUSING LABS AND NEW IV AT THIS TIME. PHLEBOTOMY NOTIFIED TO ATTEMPT DRAW. PT'S MOM CALLED AT PT'S REQUEST AND JEISON WAS UPDATED ON INCIDENT. SHAYY PONCE, AND MISHEL RN IN ROOM DURING INCIDENT.
[2024-08-31] MEDS ORDERED: LORazepam 1 MG Tab PO PRN (05:30)
--- NOTE | 2024-08-31 06:21 | NUR ---
ONE TIME DOSE ATIVAN AND PERCOCET GIVEN. PT AGREES TO CONSIDER NEW IV AFTER CALMING DOWN.
[2024-08-31 07:23] LABS: Hematocrit 26.3 % (33.0-51.0); Hemoglobin 8.5 g/dL (11.5-16.0); Mean Corpuscular HGB 28.1 pg (26.0-34.0); Mean Corpuscular HGB Conc 32.3 g/dL (31.5-36.5); Mean Corpuscular Volume 87 fL (80-100); Mean Platelet Volume 11.5 fL (9.1-12.4); NRBC ABSOLUTE 0.08 K/mm3 (0.00-0.02); NRBC Auto 0.6 /100 WBC (0.0-0.2); Platelet Count 169 K/mm3 (150-400); RDW Coefficient Variation 15.3 % (11.7-14.2); RDW Standard Deviation 48.2 fL (35.1-46.3); Red Blood Cell Count 3.02 M/mm3 (3.80-5.20); White Blood Cell Count 13.19 K/mm3 (4.00-11.30)
[2024-08-31 07:41] LABS: Calcium, Blood 7.2 mg/dL (8.5-10.1); Creatinine, Blood 0.78 mg/dL (0.40-1.00); Magnesium, Blood 1.9 mg/dL (1.6-2.4); Phosphorus, Blood 2.9 mg/dL (2.5-4.9); Potassium, Blood 3.4 mmol/L (3.5-5.5)
[2024-08-31 08:11] VITALS: BP 114/52
[2024-08-31 08:24] LABS: BAND PERCENT MAN 10 % (0-8); BASOPHILS PERCENT MAN 0 % (0-2); EOSINOPHILS PERCENT MAN 0 % (0-6); LYMPHOCYTES ABSOLUTE MAN 1.71 K/mm3 (0.84-5.20); LYMPHOCYTES PERCENT MAN 13 % (21-46); MONOCYTES PERCENT MAN 0 % (4-13); MYELOCYTE ABSOLUTE MAN 0.13 K/mm3 (0.00-0.00); MYELOCYTE PERCENT MAN 1 % (0-0); NEUTROPHILS ABSOLUTE MAN 11.34 K/mm3 (1.96-9.15); SEG NEUTROPHILS PERCENT MAN 76 % (41-73); TOTAL CELLS COUNTED 100
[2024-08-31 09:11] LABS: HIV 1,2 COMBO ANTIGEN/ANTIBODY Negative (Negative)
--- NOTE | 2024-08-31 09:57 | NUR ---
PT was c/o left hip pain at time of medication administration, 0900 approx. Assisted to reposition supine, with just one pillow under the right shoulder. Took her medications without difficulty. She repeatedly said that she is really afraid. Reinforced to her the plan for the day and that she will NOT be having surgery today, only a drain placement like what was done yesterday in radiology. She exhibits a lot of anxiety and very limited tolerance to discomfort. Anything which is uncomfortable or disagreeable is difficult to get her to do. She is tolerating the Lb and Liquacel today, but very slowly because it does not taste good, even mixed and diluted with other liquids. She does not like to reposition and it requires a lot of encouragement to understand and comply with treatment plan. She would probably benefit greatly from mobilizing when and if that would be possible.
--- NOTE | 2024-08-31 11:05 | NUR ---
pt sat on side of bed with much assistance to move her legs which are profoundly weak. Pt crying out, saying that she is painful intermittently with normal conversation. Takes a lot of encouragement to have her comply, due to her anxiety and forgetting goals of care and treatment plan. She is highly anxious when she cannot remember or when she has a change in position. She was able to sit on side of bed, but stated that he right foot felt numb and she was too weak to attempt to stand. Due to her right arm pain and pt's reluctance to use it for fear of pain the sit to stand lift was not a viable option. Ceiling lift was employed to reposition her from the bed to the recliner. She is on the phone talking to her mom at this time.
[2024-08-31 11:12] VITALS: BP 100/54
--- NOTE | 2024-08-31 12:31 | NUR ---
Pt repositioned to her right side. She was no longer tolerant of the recliner. Pt requested to have a nap; She will be going down for CT guided drain of right chest abscess but that will be at 2 pm I encouraged her.
--- NOTE | 2024-08-31 14:09 | NUR ---
PT TO CT. WILL AWAIT RETURN.
[2024-08-31] MEDS ORDERED: LORazepam 2 MG/ML 1ML Injection IV PRN (14:55)
--- NOTE | 2024-08-31 15:45 | NUR ---
Pt went down to CT accompanied by primary RN myself to emotionally support her during the CT guided drain placement. She was having left leg pain which she stated over and over again, and also intolerant of the positioning during CT due to her high anxiety in unfamiliar environments. She was given IV Dilaudid just prior to the drain placement to help with her discomfort. She tolerated it poorly. Her mother was called afterwards to update her on pt's condition. The second drain site is just superior to the site placed yesterday; both are draining astudillo purulent fluid. Pt fell asleep right after reurning to her room.
[2024-08-31 16:52] VITALS: BP 103/53
[2024-08-31 21:49] VITALS: BP 102/52
[2024-08-31 23:51] VITALS: BP 116/62
[2024-09-01 04:56] LABS: VITAMIN B6 PYRIDOXAL 5-PHOSPH 5.1 nmol/L (20.0-125.0)
[2024-09-01 05:39] VITALS: BP 112/54
--- NOTE | 2024-09-01 06:18 | NUR ---
PT A&OX4, VSS, RRR AND UNLABORED, ON ROOM AIR. BED REST, STRICT Q2 TURNS THROUGHOUT NIGHT. CALDWELL PATENT AND DRAINING WELL, SLIGHT CLOUDY TO CLEAR DARK TO YELLOW URINE. IV ABX AND IVF RUNNING. RECTAL TUBE IN PLACE, NOTED TO LEAK, PT REPOSITIONED TO NOT HAVE ALL HER WEIGHT ON RECTAL TUBE, AFTER THAT TUBE WDL. DIARRHEA NOTED, STOOL SOFTENERS HELD. WOUND CARE CHANGE PERFORMED, DRAIN SITE REINFORCED AND PAINFUL PER PT, PRN PAIN MEDS PROVIDED, NO ADVERSE EFFECTS NOTED, EFFECTIVE. PRN DILAUDID IVP ADMIN PRIOR TO TURNS/DRESSING CHANGES. EMOTIONAL SUPPORT PROVIDED. SR ON MONITOR TO ST. PT DIRECTABLE, TEARFUL AT TIMES, BESIDES THAT HAS GOOD SENSE OF HUMOR AND IS PLEASANT/CALM/COOPERATIVE WITH CARE. NO CONCERNS AT THIS TIME.
[2024-09-01 07:50] VITALS: BP 133/74
[2024-09-01 09:21] LABS: Hematocrit 27.5 % (33.0-51.0); Hemoglobin 8.7 g/dL (11.5-16.0); Mean Corpuscular HGB 28.4 pg (26.0-34.0); Mean Corpuscular HGB Conc 31.6 g/dL (31.5-36.5); Mean Corpuscular Volume 90 fL (80-100); Mean Platelet Volume 11.8 fL (9.1-12.4); NRBC ABSOLUTE 0.06 K/mm3 (0.00-0.02); NRBC Auto 0.6 /100 WBC (0.0-0.2); Platelet Count 178 K/mm3 (150-400); RDW Coefficient Variation 15.4 % (11.7-14.2); RDW Standard Deviation 49.9 fL (35.1-46.3); Red Blood Cell Count 3.06 M/mm3 (3.80-5.20); White Blood Cell Count 9.46 K/mm3 (4.00-11.30)
[2024-09-01 09:41] LABS: Calcium, Blood 7.4 mg/dL (8.5-10.1); Creatinine, Blood 0.84 mg/dL (0.40-1.00); Potassium, Blood 3.8 mmol/L (3.5-5.5)
[2024-09-01 10:05] LABS: BAND PERCENT MAN 8 % (0-8); BASOPHILS ABSOLUTE MAN 0.09 K/mm3 (0.00-0.23); BASOPHILS PERCENT MAN 1 % (0-2); EOSINOPHILS ABSOLUTE MAN 0.28 K/mm3 (0.00-0.68); EOSINOPHILS PERCENT MAN 3 % (0-6); LYMPHOCYTES % ATYPICAL MANUAL 1 % (0-0); LYMPHOCYTES ABSOLUTE MAN 1.79 K/mm3 (0.84-5.20); LYMPHOCYTES PERCENT MAN 18 % (21-46); MONOCYTES ABSOLUTE MAN 0.37 K/mm3 (0.16-1.47); MONOCYTES PERCENT MAN 4 % (4-13); SEG NEUTROPHILS PERCENT MAN 65 % (41-73); TOTAL CELLS COUNTED 100
--- NOTE | 2024-09-01 11:13 | NUR ---
UPDATE: 1100: PT AGREEABLE TO THIRD DRAIN PLACEMENT THIS AM, ORDER RECEIVED FOR ULTRASOUND GUIDED PLACEMENT-PLAN FOR 1400. 1115: WOUND DRESSINGS CHANGE COMPLETED BY THIS RN.
[2024-09-01 11:30] VITALS: BP 112/90
[2024-09-01 14:49] LABS: VITAMIN K1 0.17 nmol/L (0.22-4.88)
[2024-09-01 14:50] VITALS: BP 116/65
--- NOTE | 2024-09-01 14:53 | NUR ---
UPDATE RADIOLOGY AT BEDSIDE AT 1400 FOR ULTRASOUND GUIDED DRAIN PLACEMENT IN LEFT UPPER ARM. PATIENT TOLERATED PROCEDURE WELL, VSS STABLE.
--- NOTE | 2024-09-01 17:28 | NUR ---
TRANSFER: PT TRANSFERRED TO ROOM 352 VIA BED. REPORT CALLED TO CORRINE HUTCHINSON. ALL BELONGINGS WITH PT.
[2024-09-01 18:09] LABS: VITAMIN B1,WHOLE BLOOD 60 nmol/L (70-180)
[2024-09-01 19:34] VITALS: BP 127/68
[2024-09-01] MEDS ORDERED: Piperacillin/Tazobactam Sod 4.5 GM in NS 100 ML IV SCH (22:00)
--- NOTE | 2024-09-02 06:10 | NUR ---
SHIFT SUMMARY PT C/O GENERALIZED PAIN AND LOCALIZED TO RIGHT SHOULDER- MEDICATED PER EMAR. PT A&0X4, BUT DOES NOT SEEM TO UNDERSTAND THE SEVERITY OF HER SITUATION. PT AKING IF " CAN I JUST GO TO REHAB TOMORROW SO THAT I CAN WALK AROUND?" EXPLAINED TO PT THAT SHE WAS UNABLE TO STAND YESTERDAY WITH PT AND SHE STILL NEEDS ACUTE CARE PROVIDED ONLY AT THE HOSPITAL. PT NOT UNDERSTANDING THAT DRAINS ARE INSERTED INTO HER BODY ON PURPOSE, ASKING IF SHE CAN REMOVE THE NEWEST DRAIN BECAUSE "IT SOMEHOW GOT INSIDE OF ME". EXPLAINED MULTIPLE TIMES THE PURPOSE OF THE DRAINS. PT DID NOT SLEEP UNTIL AFTER 0200, THEN SLEPT INTERMITTENTLY. PT TURNED AND REPOSITIONED THROUGHOUT THE SHIFT. RECTAL TUBE WITH ONLY SMALL AMOUNT OF DRAINAGE. DRAINS #2 AND 3 TO SHOULDER AND CHEST WALL EMPTIED AT START OF SHIFT, BUT HAVE NOT DRAINED ENOUGH TO EMPTY SINCE THEN. DRAIN #1 WITH SEROSANG DRAINAGE IN TUBING, DRAIN #2 AND #3 WITH PURULENT DRAINAGE. MEPELEXES INTACT TO SACRUM/ BUTTUCKS, UPPER THIGHS. DRESSINGS INTACT TO RIGHT FOOT AND LEFT CALF. CALDWELL DRAINING CLOUDY DARK YELLOW URINE. IVF INFUSING PER ORDER WITH IV ANTIBIOTICS. BED IN LOWEST POSITION, CALL LIGHT WITHIN REACH, SIDERAILS UP X2.
[2024-09-02 06:16] VITALS: BP 117/66
[2024-09-02 08:01] VITALS: BP 111/60
[2024-09-02 15:20] VITALS: BP 125/69
--- NOTE | 2024-09-02 18:32 | NUR ---
TRANSFERRED NOTE/SHIFT SUMMARY: PATIENT TRANSFERRED TO ROOM AT 1148 FROM RM 352. PATIENT TRANSFERRED VIA BED. PATIENT ALERT AND ORIENTED AND ABLE TO MAKE NEEDS KNOWN. PATIENT DENIES CP/PRESSURE, SOB, N/V AND DIZIZNESS. PATIENT HAS 3 ACCORDIAN DRAIN TO R SHOULDER, DRAINING WELL c LIGHT GREENISH/MILKY COLOR, MALODOROUS. PATIENT REPOSITIONED FOR COMFORT. PATIENT HAD PT EVAL TODAY, BUT DECLINED TO PARTICIPATE c PT, WELL ATTEMPT TO SEE HER TOMORROW. PATIENT REPORTS PAIN TO R SHOULDER AND GENERALIZED, MEDICATED FOR PAIN PER EMAR c GOOD EFFECT. PATIENT HAS CALDWELL, PATENT DRAINING YELLOW URINE TO GRAVITY. PATIENT RECEIVED SCHEDULED MEDS PER EMAR. VITAL SIGNS REVIEWED. PATIENT MOM AT BEDSIDE VISITING. CALL LIGHT IN REACH.
[2024-09-02 20:13] VITALS: BP 126/73
[2024-09-03] MEDS ORDERED: LORazepam 1 MG Tab PO PRN ×2 (02:45→11:00)
--- NOTE | 2024-09-03 02:47 | NUR ---
QUITE ANXIOUS AT INTERVALS. VOICED WORRIED ABOUT THE LINES - NAI AND DRAINS. INTERMITTENT REASSURANCE, ANXIETY INCREASED. MD WAS PT, ORDERED ATIVAN 1 MG PO Q 6PRN WITH LIMIT OF 3.
--- NOTE | 2024-09-03 04:23 | NUR ---
ELECTRICAL LINESWORKER SUMMARY VSS, ALERT TO QUESTIONS ASKED BUT EASILY AGITATED AND INTERMITTENT ANXIETY. MD NOTIFIED AND MD SAW PT AND ORDERED PO ATIVAN 1 MG PRN X 3 DOSES. MOTHER AT BEDSIDE FOR COMFORT. DRESSINGS OF BLE INTACT. DRAINS OF RIGHT SHOULDER INTACT, DRAINING CHAMBERLAIN THICK EXUDATE. CALDWELL DRAINING STARLA. AWAKE AT INTERVALS. MULTIPLE ATTEMPTS TO REDIRECT AND REASSURE. HOB ELEVATED FOR RESP COMFORT. CALL LIGHT IN REACH, RAILS UP X 2 AND BED IN LOW POSITION FOR SAFETY. WILL CONTINUE TO MONITOR
[2024-09-03 05:26] LABS: VITAMIN B2 3 nmol/L (5-50)
[2024-09-03 06:38] VITALS: BP 118/73
[2024-09-03 07:22] VITALS: BP 123/66
[2024-09-03 08:25] LABS: BASOPHILS ABSOLUTE AUTO 0.05 K/mm3 (0.00-0.23); BASOPHILS PERCENT AUTO 1 % (0-2); EOSINOPHILS PERCENT AUTO 1 % (0-6); Hematocrit 26.4 % (33.0-51.0); Hemoglobin 8.2 g/dL (11.5-16.0); IMMATURE GRAN ABSOLUTE AUTO 0.22 K/mm3 (0.00-0.10); IMMATURE GRAN PERCENT AUTO 3 % (0-1); LYMPHOCYTES PERCENT AUTO 22 % (21-46); MONOCYTES ABSOLUTE AUTO 0.58 K/mm3 (0.16-1.47); MONOCYTES PERCENT AUTO 7 % (4-13); Mean Corpuscular HGB 27.9 pg (26.0-34.0); Mean Corpuscular HGB Conc 31.1 g/dL (31.5-36.5); Mean Corpuscular Volume 90 fL (80-100); Mean Platelet Volume 11.2 fL (9.1-12.4); NEUTROPHILS ABSOLUTE AUTO 5.55 K/mm3 (1.96-9.15); NEUTROPHILS PERCENT AUTO 67 % (41-73); Platelet Count 281 K/mm3 (150-400); RDW Coefficient Variation 15.7 % (11.7-14.2); RDW Standard Deviation 50.1 fL (35.1-46.3); Red Blood Cell Count 2.94 M/mm3 (3.80-5.20)
--- NOTE | 2024-09-03 08:30 | NUR ---
WHEN GETTING REPORT FROM THE PREVIOUS SIMULATION EDUCATOR, SHE STATED THAT THE PT HAD HER RABBIT IN THE ROOM AND STAFF WERE NOT AWARE UNTIL THEY FOUND FECES AND URINE ALL OVER THE FLOOR. PT WAS NOTIFIED THAT THE RABBIT COULD NOT BE HERE AND WAS TO BE REMOVED. WHILE I WAS CHANGING THE PT THERE WAS A LARGE AMOUNT OF RABBIT FECES FOUND UNDERNEATH THE PT ON THE LIFT SHEET. PT WAS CLEANED UP WITH BATH WIPES, SOAP AND WATER, LIFT SHEET AND INCONTINENT SUPPLIES WERE REPLACED WITH NEW CLEAN SUPPLIES.
[2024-09-03 08:36] LABS: Albumin, Blood 1.2 g/dL (3.4-5.0); Albumin/Globulin Ratio 0.2 (0.8-1.8); Bilirubin, Total 0.2 mg/dL (0.1-1.0); Bun/Creatinine Ratio 33.3 (12.0-20.0); Calcium, Blood 7.6 mg/dL (8.5-10.1); Creatinine, Blood 0.81 mg/dL (0.40-1.00); Globulin, Blood 5.4 g/dL (2.2-4.0); Potassium, Blood 4.7 mmol/L (3.5-5.5); Total Protein, Blood 6.6 g/dL (6.4-8.2)
[2024-09-03 15:37] VITALS: BP 109/57
--- NOTE | 2024-09-03 16:47 | NUR ---
SHIFT SUMMARY: PATIENT A/O, ANXIOUS AND SOME FORGETFUL ON/OFF T/O THE DAY. PATIENT HAD EPISODE OF AGITATION, ATTEMPT TO GET OOB AND YELLING OUT c REPOSITIONING AND DRESSING CHANGED THIS AM. DRESSING CHANGED TO R FOOT, L LEG, COCCYX AND R BUTTOCK PER ORDER. PATIENT MEDICATED FOR AGITATION/ANXIETY AND FOR PAIN PER EMAR c GOOD EFFECT. PATIENT HAS 3 ACCORDIAN DRAIN TO R SHOULDER/CHEST DRAINING MOD AMT OF PURULENT DRAINAGE. Q2 TURN. PATIENT WORK c PT MOBILITY IN BED. PATIENT NWB TO R FOOT AND PARTIAL WB TO L FOOT. PATIENT CALDWELL PATENT, DRAINING YELLOW URINE TO GRAVITY. PATIENT HAS FAIR APPETITE. RECEIVED IV ABX/SCHEDULED MEDS PER EMAR. VITAL SIGNS REVIEWED. CALL LIGHT IN REACH. PATIENT MOM AT BEDSIDE THIS SHIFT.
--- NOTE | 2024-09-03 18:22 | NUR ---
1715 ASSUMED CARE OF PATIENT. PTS MOTHER AT BEDSIDE AND TELLING ME THAT THEY WANT TO CUT BRITTANYS LEGS OFF AND THAT HAS CAUSED A LOT OF ANXIETY. PT BECAME TEARFUL. REDIRECTED MOTHER TO NOT DISCUSS POTENTIAL SURGERY AT THIS TIME. PATIENTS MOTHER ASSISTED TO WHEELCHAIR SHE IS GOING TO GO HOME FOR THE NIGHT. PT REPORTS HAVING NIGHTMARES ABOUT BEING HELD DOWN AND HER LEGS BEING CUT OFF. DISCUSSED PATIENTS FEARS WITH HER AND REASSURED PATIENT THAT SHE IS IN A SAFE ENVIRONMENT AND WILL NOT BE FORCED TO DO ANYTHING SHE DOES NOT WISH TO DO
--- NOTE | 2024-09-03 18:35 | NUR ---
PT TEARFUL, ATIVAN GIVEN FOR ANXIETY. REDIRECTED PATIENT AND FOUND TV SHOW THAT SHE WAS INTERESTED IN WATCHING
[2024-09-03 20:27] VITALS: BP 142/85
--- NOTE | 2024-09-04 04:02 | NUR ---
RESEARCH CHEMICAL ENGINEER SUMMARY VSS. AWAKE AT SHIFT COMMENCE. SEEMED EASILY SCARED OF ANY CHANGES IN STAFF, ETC. RECEIVED INTERMITTENT REDIRECTION AND SUPPORT TO HELP DEAL WITH SITUATIONS. IVF AND IV ANTIBIOTICS WELL SCHEDULED MEDS TOLERATED WELL. BANFAGESOF BLE CDI. DRAINS OF RIGHT SHOULDER INTACT, DRAINING THICK GREAY EXUDATE. CALDWELL DRAINING TEA COLORED URINE. HAS BEEN RESTING QUIETLY MOST OF SHIFT, BUT WOKE UP A FEW TIMES, ONE TIME THREW HER PORTABLE FAN ACROSS THE ROOM, ANOTHER TIME DROPPED HER PHONE ON THE FLOOR AND ANOTHER TIME WOKE UP VOICED FEARS OF NOT BEING ABLE TO DISTINGUISH BETWEEN DREAMS AND REALITY. ATIVAN PO ADMIN. ABLE TO REPOSITION SELF IN BED, CALL LIGHT IN REACH, RAILS UP X 2 AND BED IN LOW POSITION FOR SAFETY. CURRENTLY RESTING QUIETLY WITH LIGHT ON. WILL CONTINUE TO MONITOR.
[2024-09-04 04:46] VITALS: BP 140/83
[2024-09-04 07:49] VITALS: BP 132/69
[2024-09-04] MEDS ORDERED: Metoclopramide HCl 10 MG Tab PO SCH (08:05)
--- NOTE | 2024-09-04 08:09 | NUR ---
CALLED DR KC- PT IS EXPECTED TO BE ON IV ABX [facility] AND REQUIRES ACCESS. ORDER RECIEVED TO PLACE A PICC, CALLED DR DUMAS THE PT HAS NOT HAD ANY NEGATIVE BLOOD CULTURES AT THIS TIME. NEW ORDER FOR BLOOD CULTURES NOW. ORDER TO GET WHAT ACCESS WE CAN UNTIL THE PT HAS NEGATIVE CULTURES AND CAN GET A PICC LINE. PT HAS REMAINED ON IVF T/O HER HOSPITAL STAY, NIGHT RN SL D/T CONCERN OVER THE PG BEING INFILTRATED. IT FLUSHES WELL WITHOUT PAIN, HOWEVER WHEN THIS RN FLUSHED IT AND PULLED BACK 15 ML OF CLEAR FLUID HIMA BACK.
[2024-09-04] MEDS ORDERED: Insulin Glargine-Yfgn 100 Unit/mL 3 ML SYR SC SCH (09:00)
[2024-09-04 10:55] LABS: Albumin, Blood 1.2 g/dL (3.4-5.0); Albumin/Globulin Ratio 0.2 (0.8-1.8); Bilirubin, Total 0.4 mg/dL (0.1-1.0); Calcium, Blood 7.3 mg/dL (8.5-10.1); Creatinine, Blood 0.79 mg/dL (0.40-1.00); Globulin, Blood 4.9 g/dL (2.2-4.0); Magnesium, Blood 1.9 mg/dL (1.6-2.4); Phosphorus, Blood 3.1 mg/dL (2.5-4.9); Potassium, Blood 4.8 mmol/L (3.5-5.5); Total Protein, Blood 6.1 g/dL (6.4-8.2)
[2024-09-04 11:21] LABS: BASOPHILS ABSOLUTE AUTO 0.05 K/mm3 (0.00-0.23); BASOPHILS PERCENT AUTO 1 % (0-2); EOSINOPHILS PERCENT AUTO 1 % (0-6); Hematocrit 24.4 % (33.0-51.0); Hemoglobin 7.6 g/dL (11.5-16.0); IMMATURE GRAN ABSOLUTE AUTO 0.11 K/mm3 (0.00-0.10); IMMATURE GRAN PERCENT AUTO 2 % (0-1); LYMPHOCYTES ABSOLUTE AUTO 1.82 K/mm3 (0.84-5.20); LYMPHOCYTES PERCENT AUTO 26 % (21-46); MONOCYTES ABSOLUTE AUTO 0.54 K/mm3 (0.16-1.47); MONOCYTES PERCENT AUTO 8 % (4-13); Mean Corpuscular HGB Conc 31.1 g/dL (31.5-36.5); Mean Corpuscular Volume 90 fL (80-100); Mean Platelet Volume 10.4 fL (9.1-12.4); NEUTROPHILS ABSOLUTE AUTO 4.42 K/mm3 (1.96-9.15); NEUTROPHILS PERCENT AUTO 63 % (41-73); Platelet Count 336 K/mm3 (150-400); RDW Coefficient Variation 15.9 % (11.7-14.2); RDW Standard Deviation 50.4 fL (35.1-46.3); Red Blood Cell Count 2.71 M/mm3 (3.80-5.20); White Blood Cell Count 7.04 K/mm3 (4.00-11.30)
[2024-09-04 15:50] VITALS: BP 132/68
--- NOTE | 2024-09-04 19:58 | NUR ---
SHIFT SUMMARY- PT ALERT AND ORIENTED AND ABLE TO MAKE HER NEEDS KNOWN, SHE HAS SOME BEHAVIORS THAT INDICATE SSHE IS A LITTLE SIMPLE MINDED. SUCH CALLING STAFF FOR A REPOSITION AND WHEN THEY ARE NOT IMMEDIATELY AVAAILABLE, SHE PULLS HER BEDDING OUT AND THROWS IT ON THE FLOOR. OR GETTING UPSET AND THROWING HER FAN ON THE FLOOR. SHE DOES NOT APPEAR TO DELIBERATELY THROW THINGS AT STAFF, USUALLY WHEN NOONE IS AROUND SHE "DROPS" A LOT OF THINGS. PT HAS BEEN PLEASENT T/O THE DAY TODAY SHE HAS THREE DRAINS IN THE RIGHT SHOULDER. ONE IS DRAINING SEROSANGUINOUS FLUID, THE OTHER TWO ARE DRAINING SOME THICK GREEN CHAMBERLAIN PRURULENT DRAINAGE. THE DRESSINGS FOR THE DRAINS ARE FALLING OFF, ATTEMPTED TO GET SUPPLIES FROM [employer], THE [employer] REQUESTED NEVER ARRIVED. STABILIZED WITH PAPER TAPE WHEN [employer] SK[employer]NER ARRIVED. PT MOTHER ARRIVED AFTER BEDSIDE REPORT WAS COMPLETED. PER ALL REPORTS SHE TENDS TO UPSET THE PT GREATLY. PT WAS IN BED AT THE TIME OF BEDSIDE REPORT, NO S&S OF DISTRESS NOTED, CALL LIGHT IN REACH, DRESSING CHANGE TO LLE COMPLETED JUST PRIOR TO SHIFT CHANGE IT FELL OFF.
[2024-09-04 20:40] VITALS: BP 140/79
[2024-09-04] MEDS ORDERED: NS 250 ML IV PRN (23:05)
[2024-09-05 04:28] VITALS: BP 134/71
--- NOTE | 2024-09-05 07:20 | NUR ---
ROLL FORMING SUPERVISOR SUMMARY: PT A&O X4. MAKES NEEDS KNOWN. PT MOTHER IN TO VISIT AT BEGINNING OF SHIFT. PT AND FAMILY EDUCATED ON VISITING HRS AND PT MOTHER ASSISTED TO CAR AT THE END OF VISITING HRS. PT HAD NO OBSERVED OR REPORTED NEGATIVE BEHAVIORS T/O SHIFT. PT TOLERATING IV ABX. MEDICATED X1 FOR SHOULDER PAIN PER EMAR ORDERS; EFFECTIVE. BED BATH AND LINEN CHANGE PROVIDED BY TRIMMER LOADER. CALDWELL DRAINGIN YELLOW URINE TO GRAVITY. BED IN LOWEST POSITION. CALL LIGHT IN REACH. CARES ONGOING ORDERED.
[2024-09-05 07:41] VITALS: BP 133/77
[2024-09-05 10:30] LABS: BASOPHILS ABSOLUTE AUTO 0.04 K/mm3 (0.00-0.23); BASOPHILS PERCENT AUTO 1 % (0-2); EOSINOPHILS ABSOLUTE AUTO 0.23 K/mm3 (0.00-0.68); EOSINOPHILS PERCENT AUTO 3 % (0-6); Hematocrit 25.5 % (33.0-51.0); Hemoglobin 7.9 g/dL (11.5-16.0); IMMATURE GRAN ABSOLUTE AUTO 0.06 K/mm3 (0.00-0.10); IMMATURE GRAN PERCENT AUTO 1 % (0-1); LYMPHOCYTES PERCENT AUTO 21 % (21-46); MONOCYTES PERCENT AUTO 6 % (4-13); Mean Corpuscular HGB 28.3 pg (26.0-34.0); Mean Corpuscular Volume 91 fL (80-100); Mean Platelet Volume 10.3 fL (9.1-12.4); NEUTROPHILS ABSOLUTE AUTO 5.53 K/mm3 (1.96-9.15); NEUTROPHILS PERCENT AUTO 69 % (41-73); Platelet Count 367 K/mm3 (150-400); RDW Coefficient Variation 15.8 % (11.7-14.2); RDW Standard Deviation 51.5 fL (35.1-46.3); Red Blood Cell Count 2.79 M/mm3 (3.80-5.20); White Blood Cell Count 8.06 K/mm3 (4.00-11.30)
[2024-09-05 10:51] LABS: Albumin, Blood 1.3 g/dL (3.4-5.0); Albumin/Globulin Ratio 0.3 (0.8-1.8); Bilirubin, Total 0.2 mg/dL (0.1-1.0); Bun/Creatinine Ratio 37.8 (12.0-20.0); Calcium, Blood 7.8 mg/dL (8.5-10.1); Creatinine, Blood 0.82 mg/dL (0.40-1.00); Phosphorus, Blood 2.9 mg/dL (2.5-4.9); Potassium, Blood 4.7 mmol/L (3.5-5.5); Total Protein, Blood 6.3 g/dL (6.4-8.2)
[2024-09-05 17:01] VITALS: BP 123/63
--- NOTE | 2024-09-05 17:53 | NUR ---
NO ACUTE CHANGES THIS SHIFT. PT TURNED Q2 HOURS AND PRN TOLORATED. TREATED PAIN PER EMAR. PT IS ANXIOUS AND REQUIRES FREQUENT REASSURANCE. WOUNDS CLEANSED AND REDRESSED ORDERED. MODERATE DRAINING FROM TUBES AT RIGHT SHOULDER. DENIES CHEST PAIN/SOB. PT IS WEAK. ORIENTED X4, CALLS APPROPRIATELY
[2024-09-05 19:46] VITALS: BP 111/66
--- NOTE | 2024-09-06 00:30 | NUR ---
AT HS WAS SCHEDULED FOR CT, BUT PT REFUSED, STATED SHE WOULD BE WILLING TO DO IT TOMORROW MORNING. RADIOLOGY NOTIFIED AND WILL DO SO.
--- NOTE | 2024-09-06 03:52 | NUR ---
LIFE UNDERWRITER SUMMARY VSS. ALERT TO QUESTIONS ASKED. MOOD/BEHAVIOR FLUCTUATING, RECEPTIVE TO CRYING. REPOSITIONED PER PT ALLOWING. DRAINS OF RIGHT SHOULDER DRAINING. CALDWELL DRAINING STARLA. DRESSINGS OF BLE, ETC CDI. WAS SCHEDULED FOR A CT OF RIGHT SHIULDER BUT REFUSED IT, WANTING IT DONE "IN THE MORNING". IV ANTIBIOTICS ADMINISTERED PER JUL. RESTING QUIETLY AT TIMES. WILL CONT TO MONITOR. CALL LIGHT IN REACH, RAILS UP X 2 AND BED IN LOW POSITION FOR SAFETY.
[2024-09-06 04:02] VITALS: BP 123/70
[2024-09-06 07:18] VITALS: BP 138/72
[2024-09-06 08:14] LABS: Hematocrit 25.7 % (33.0-51.0); Hemoglobin 8.2 g/dL (11.5-16.0); Mean Corpuscular HGB 28.8 pg (26.0-34.0); Mean Corpuscular HGB Conc 31.9 g/dL (31.5-36.5); Mean Corpuscular Volume 90 fL (80-100); Mean Platelet Volume 10.2 fL (9.1-12.4); Platelet Count 403 K/mm3 (150-400); RDW Coefficient Variation 15.9 % (11.7-14.2); RDW Standard Deviation 51.6 fL (35.1-46.3); Red Blood Cell Count 2.85 M/mm3 (3.80-5.20); White Blood Cell Count 7.43 K/mm3 (4.00-11.30)
[2024-09-06 08:40] LABS: Albumin, Blood 1.4 g/dL (3.4-5.0); Albumin/Globulin Ratio 0.3 (0.8-1.8); Bilirubin, Total 0.2 mg/dL (0.1-1.0); Bun/Creatinine Ratio 37.8 (12.0-20.0); Calcium, Blood 7.7 mg/dL (8.5-10.1); Creatinine, Blood 0.79 mg/dL (0.40-1.00); Globulin, Blood 4.9 g/dL (2.2-4.0); Magnesium, Blood 1.9 mg/dL (1.6-2.4); Phosphorus, Blood 3.6 mg/dL (2.5-4.9); Potassium, Blood 4.3 mmol/L (3.5-5.5); Total Protein, Blood 6.3 g/dL (6.4-8.2)
--- NOTE | 2024-09-06 14:09 | NUR ---
MET WITH PT, SHE IS TEARFUL. STATES HER L LEG PAIN IS "HURTING VERY BAD," A /. LEG IS EDEMATOUS, PAINFUL TO THE TOUCH. RN NOTIFIED, SHE IS GOING TO ADMINISTER ORDERED PRN PAIN MEDICATION. REQUEST RN ALSO GIVE ATIVAN PT PERSEVERATING ABOUT MOM NOT BEING ALLOWED TO SPEND THE NIGHT AND POSSIBILITY OF GOING TO REHAB AND BEING ALONE. DR. KC AWARE OF IMMOBILITY, EDEMATOUS L LEG. WILL CONTINUE OFFERING ACTIVE LISTENING AND ENCOURAGEMENT.
[2024-09-06 15:37] VITALS: BP 117/58
--- NOTE | 2024-09-06 17:00 | NUR ---
SHIFT SUMMARY PATIENT ALERT AND INTERACTIVE. PATIENT EASILY TEARFUL AND ANXIOUS ABOUT TURNING AND MOVING. PATIENT MEDICATED PER MAR NEEDED. WOUND CARE PROVIDED TO MULTIPLE WOUNDS ON LEGS, BUTTOCKS, AND FEET. WOUNDS IN VARIOUS STAGES AND DRAINING WOUNDS. PATIENT DENIES ANY INJURY TO CAUSE WOUNDS. PATIENT STATES THAT SHE COULDN'T GET OUT OF BED AT HOME FOR 2 WEEKS BEFORE SHE CAME TO THE HOSPITAL. PATIENT LIVES WITH HER MOTHER WITH MULTIPLE ANIMALS IN THE HOME. . SHOULDER DRAINS CONTINUE TO DRAIN PURULENT DRAINAGE. CT DONE. PATIENT CONTINUES TO BE INCONTINENT LIQUID STOOLS. STOOL SOFTENERS HELD AND REGLAN HELD.
[2024-09-06 19:30] VITALS: BP 129/65
[2024-09-07 02:49] VITALS: BP 130/63
--- NOTE | 2024-09-07 03:45 | NUR ---
SHIFT SUMMARY NO ACUTE EVENTS DURING THIS SHIFT. PT IS A/O X3-4, PLEASANT AND COOPERATIVE WITH CARE. PT OPENED UP ABOUT A POSSIBLE CAUSE OF THE ABSCESS'S ARE, PT REPORTS WAS "GIVING MYSELF OZEMPIC SHOTS FOR WEIGHT LOSS AND TO LOWER A1C", AND SHORTLY AFTER ENDED UP WITH ABSCESS ON THE RIGHT UPPER CHEST AREA. THIS PRECINCT POLICE LIEUTENANT USED EMPATHY AND ACTIVE LISTENING. PT REPORTS NERVOUS ABOUT HER MOTHER BEING HOME ALONE WHEN THE PT GOES TO REHAB. PT WORRIED MOTHER NOT ABLE TO TAKE CARE OF HERSELF. PT REPORTS 9/10 RIGHT SHOULDER, BACK AND BILATERAL LE PAIN. MEDICATED T/O THIS SHIFT PER EMAR WITH GOOD EFFECTIVNESS. @HS MEDICATED WITH PRN ATIVAN D/T HIGH ANXIETY. HS BG 202. VSS. BED AT THE LOWEST POSITION, CALL LIGHT WITHIN REACH. PT IS ABLE TO MAKE HER NEEDS KNOWN.
--- NOTE | 2024-09-07 07:45 | NUR ---
ASSUMPTION OF CARE: ASSUMED CARE OF PATIENT. ASLEEP DURING SHIFT CHANGE REPORT. LYING IN BED c HOB ELEVATED. BREATHING EVEN AND UNLABORED. CALDWELL PATENT AND DRAINING. THREE URESIL DRAINS UP BY RIGHT SIDE OF HEAD. BED IN LOWEST POSITION. CALL LIGHT WITHIN REACH. NO ACUTE NEEDS.
[2024-09-07 07:57] VITALS: BP 125/64
[2024-09-07] MEDS ORDERED: Furosemide 20 MG Tab PO SCH (09:00)
[2024-09-07 10:04] LABS: Hematocrit 23.9 % (33.0-51.0); Hemoglobin 7.6 g/dL (11.5-16.0); Mean Corpuscular HGB 28.7 pg (26.0-34.0); Mean Corpuscular HGB Conc 31.8 g/dL (31.5-36.5); Mean Corpuscular Volume 90 fL (80-100); Mean Platelet Volume 10.1 fL (9.1-12.4); Platelet Count 390 K/mm3 (150-400); Red Blood Cell Count 2.65 M/mm3 (3.80-5.20); White Blood Cell Count 7.51 K/mm3 (4.00-11.30)
[2024-09-07 10:25] LABS: Albumin, Blood 1.4 g/dL (3.4-5.0); Albumin/Globulin Ratio 0.3 (0.8-1.8); Bilirubin, Total 0.2 mg/dL (0.1-1.0); Calcium, Blood 8.3 mg/dL (8.5-10.1); Creatinine, Blood 0.8 mg/dL (0.40-1.00); Globulin, Blood 4.9 g/dL (2.2-4.0); Magnesium, Blood 1.9 mg/dL (1.6-2.4); Phosphorus, Blood 3.5 mg/dL (2.5-4.9); Potassium, Blood 4.1 mmol/L (3.5-5.5); Total Protein, Blood 6.3 g/dL (6.4-8.2)
[2024-09-07 15:06] VITALS: BP 129/59
--- NOTE | 2024-09-07 19:15 | NUR ---
[id number] SUMMARY A&Ox4. PLEASANT AND COOPERATIVE WITH CARE. CALLS APPROPRIATELY AND IS ABLE TO ADVOCATE NEEDS EFFECTIVELY. BEDBOUND, FOR THE TIME BEING. INCONTINENT OF BOWEL AND BLADDER; CALDWELL PATENT AND DRAINING YELLOW URINE TO GRAVITY. LBM TODAY; LOOSE STOOLS AND REFUSING ALL STOOL SOFTENERS. MEDS WHOLE c FLUIDS. NO TELE. MEDICATED ROUTINELY FOR PAIN T/O SHIFT. RECEIVED PICC LINE TODAY AND POWERGLIDE REMOVED. BED IN LOWEST POSITION. CALL LIGHT WITHIN REACH. REPORT TO ONCOMING NURSE.
[2024-09-07 19:39] VITALS: BP 125/56
[2024-09-08 02:49] VITALS: BP 131/69
--- NOTE | 2024-09-08 05:10 | NUR ---
Rn shift summary: Patient is a sweet alert patient. She is very reluctant to move or change position. Patient has been medicated x3 for Rt shoulder and left leg pain. Patient has been able to rest between cares. Pt has 2 uricell drain to her rt shoulder. Rt foot is wrapped and left calf is wrapped. Uricell drains with white/fang thick drainage:300cc total. Pt has a meeks cath with good output. Patient continues to receive IV ABX via new PICC line. Uses call light appropriately.
[2024-09-08 06:34] LABS: BASOPHILS ABSOLUTE AUTO 0.03 K/mm3 (0.00-0.23); BASOPHILS PERCENT AUTO 0 % (0-2); EOSINOPHILS ABSOLUTE AUTO 0.28 K/mm3 (0.00-0.68); EOSINOPHILS PERCENT AUTO 4 % (0-6); Hematocrit 24.6 % (33.0-51.0); Hemoglobin 7.7 g/dL (11.5-16.0); IMMATURE GRAN ABSOLUTE AUTO 0.03 K/mm3 (0.00-0.10); IMMATURE GRAN PERCENT AUTO 0 % (0-1); LYMPHOCYTES ABSOLUTE AUTO 1.85 K/mm3 (0.84-5.20); LYMPHOCYTES PERCENT AUTO 24 % (21-46); MONOCYTES ABSOLUTE AUTO 0.43 K/mm3 (0.16-1.47); MONOCYTES PERCENT AUTO 6 % (4-13); Mean Corpuscular HGB 28.4 pg (26.0-34.0); Mean Corpuscular HGB Conc 31.3 g/dL (31.5-36.5); Mean Corpuscular Volume 91 fL (80-100); Mean Platelet Volume 10.1 fL (9.1-12.4); NEUTROPHILS ABSOLUTE AUTO 4.98 K/mm3 (1.96-9.15); NEUTROPHILS PERCENT AUTO 66 % (41-73); Platelet Count 408 K/mm3 (150-400); RDW Standard Deviation 52.3 fL (35.1-46.3); Red Blood Cell Count 2.71 M/mm3 (3.80-5.20)
[2024-09-08 06:43] LABS: Magnesium, Blood 1.9 mg/dL (1.6-2.4)
[2024-09-08 06:44] LABS: Albumin, Blood 1.4 g/dL (3.4-5.0); Albumin/Globulin Ratio 0.3 (0.8-1.8); Bilirubin, Total 0.2 mg/dL (0.1-1.0); Bun/Creatinine Ratio 41.1 (12.0-20.0); Calcium, Blood 8.1 mg/dL (8.5-10.1); Creatinine, Blood 0.8 mg/dL (0.40-1.00); Globulin, Blood 4.9 g/dL (2.2-4.0); Phosphorus, Blood 3.4 mg/dL (2.5-4.9); Potassium, Blood 4.1 mmol/L (3.5-5.5); Total Protein, Blood 6.3 g/dL (6.4-8.2)
[2024-09-08 07:48] VITALS: BP 129/64
[2024-09-08] MEDS ORDERED: FOLI1 PO (13:59)
[2024-09-08] MEDS ORDERED: JUVEN PACKET1 EAC3 PO (13:59)
[2024-09-08] MEDS ORDERED: FURO20 PO (14:00)
[2024-09-08] MEDS ORDERED: BASAGLAR K100 UNIT/1 SC (14:00)
[2024-09-08] MEDS ORDERED: HUMALOG KW100 UNIT/1 SC (14:04)
[2024-09-08] MEDS ORDERED: Ativan1 MG PO (14:04)
[2024-09-08] MEDS ORDERED: METO5A PO (14:05)
[2024-09-08] MEDS ORDERED: Percocet 5-3251 EACH PO (14:06)
[2024-09-08] MEDS ORDERED: PIPERACIL-TAZO4.5 G1 IV (14:07)
[2024-09-08] MEDS ORDERED: MIRALAX17 GM PO (14:07)
[2024-09-08] MEDS ORDERED: B-1100 M1 PO (14:08)
[2024-09-08] MEDS ORDERED: Hair, Skin & N1 EACH PO (14:08)
[2024-09-08] MEDS ORDERED: SENNA LAXATIVE8.6 MG PO (14:08)
[2024-09-08] MEDS ORDERED: VISBIOME 112.51 EACH PO (14:09)
[2024-09-08] MEDS ORDERED: ENDIT56.7 GM TOP (14:10)
--- NOTE | 2024-09-08 15:27 | NUR ---
PATIENT LEFT THE FACILITY AT 1515 VIA MED TRANSPORT TO SNF. THIS STUDENT CALLED SNF AND GAVE REPORT TO AURELIA RAPHAEL LPN AT 1520.
== END 2024-09-08 15:18 | DRG 871 ==
LOC: ER 16:20 → PCU 19:26 → MEDS 19:26 → PCU 21:33 → MEDS 09-01 17:33
PROVIDERS: Hospitalist; Internal Medicine; Student in an Organized Health Care Education/Training Program; Surgery; ADMIT Internal Medicine
PROC: 3E03329 Introduction of Other Anti-infective into Peripheral Vein, Percutaneous Approach (ICD-10-PCS; principal; 2024-08-28)
PROC: 0K9 Muscles, Drainage (ICD-10-PCS; 2024-08-30)
PROC: 05HY33Z Insertion of Infusion Device into Upper Vein, Percutaneous Approach (ICD-10-PCS; 2024-09-07)
DX: A41.01 Sepsis due to Methicillin susceptible Staphylococcus aureus (principal); L89.614 Pressure ulcer of right heel, stage 4; L89.894 Pressure ulcer of other site, stage 4; L03.115 Cellulitis of right lower limb; L03.116 Cellulitis of left lower limb; E44.0 Moderate protein-calorie malnutrition; Z68.41 Body mass index [BMI] 40.0-44.9, adult; E87.20 Acidosis, unspecified; E87.1 Hypo-osmolality and hyponatremia; L02.413 Cutaneous abscess of right upper limb; L02.213 Cutaneous abscess of chest wall; M86.8X7 Other osteomyelitis, ankle and foot; R65.20 Severe sepsis without septic shock; I10 Essential (primary) hypertension; E78.00 Pure hypercholesterolemia, unspecified; F17.210 Nicotine dependence, cigarettes, uncomplicated; E66.01 Morbid (severe) obesity due to excess calories; E11.65 Type 2 diabetes mellitus with hyperglycemia; J98.2 Interstitial emphysema; E56.1 Deficiency of vitamin K; L89.152 Pressure ulcer of sacral region, stage 2; R79.1 Abnormal coagulation profile; K59.00 Constipation, unspecified; R21 Rash and other nonspecific skin eruption; D50.9 Iron deficiency anemia, unspecified; E83.39 Other disorders of phosphorus metabolism; E87.6 Hypokalemia; E53.8 Deficiency of other specified B group vitamins; T38.3X5A Adverse effect of insulin and oral hypoglycemic [antidiabetic] drugs, initial encounter; D63.8 Anemia in other chronic diseases classified elsewhere; L89.899 Pressure ulcer of other site, unspecified stage; E11.69 Type 2 diabetes mellitus with other specified complication; B96.4 Proteus (mirabilis) (morganii) as the cause of diseases classified elsewhere; Z53.9 Procedure and treatment not carried out, unspecified reason; Z88.8 Allergy status to other drugs, medicaments and biological substances; Z79.899 Other long term (current) drug therapy; Z79.84 Long term (current) use of oral hypoglycemic drugs
CPT/HCPCS: 10030; 36415; 36569; 51702; 71260; 73201; 73701; 74177; 80048; 80053; 80069; 80202; 81001; 82010; 82607; 82728; 82746; 82803; 82947; 83036; 83540; 83550; 83605; 83735; 83880; 84100; 84134; 84145; 84207; 84252; 84425; 84597; 85025; 85027; 85610; 85651; 85730; 86140; 86592; 87040; 87070; 87075; 87077; 87186; 87205; 87389; 93005; 93010; 93306; 93971; 94760; 94762; 97110; 97110-CQ; 97129; 97161; 97165; 97168; 97530; 97535; 99285-25; A9270; C1751; J0692; J1171; J1815; J2543; J2765; J3010; J3370; J7030; J7040; J7050; J7060; J7120; P9047; Q9967

== ENCOUNTER 2024-09-13 15:34 | Inpatient (IN) | payer MEDICARE, OTHER ==
[~2024-09-13] VITALS: Ht 180.3 cm; Wt 150.7 kg
[~2024-09-13 15:34] MED LIST changes: +AMOX-CLAV 875-1 EAC5 PO; +ATOR40TA PO; +Ativan1 MG PO; +B-1100 M1 PO; +BASAGLAR K100 UNIT/1 SC; +ENDIT56.7 GM TOP; +FLUC200 PO; +FOLI1 PO; +FURO20 PO; +HUMALOG KW100 UNIT/1 SC; +HYDROCODONE-AC1 EAC7 PO; +Hair, Skin & N1 EACH PO; +JUVEN PACKET1 EAC3 PO; +METFORMIN HCL500 M2 PO; +METO5A PO; +MIRALAX17 GM PO; +Norco 10-325 T1 EACH PO; +PIPERACIL-TAZO4.5 G1 IV; +Percocet 5-3251 EACH PO; +SENNA LAXATIVE8.6 MG PO; +VISBIOME 112.51 EACH PO
[2024-09-13 16:58] LABS: BASOPHILS ABSOLUTE AUTO 0.08 K/mm3 (0.00-0.23); BASOPHILS PERCENT AUTO 1 % (0-2); EOSINOPHILS ABSOLUTE AUTO 0.22 K/mm3 (0.00-0.68); EOSINOPHILS PERCENT AUTO 2 % (0-6); Hematocrit 34.2 % (33.0-51.0); Hemoglobin 10.5 g/dL (11.5-16.0); IMMATURE GRAN ABSOLUTE AUTO 0.15 K/mm3 (0.00-0.10); IMMATURE GRAN PERCENT AUTO 1 % (0-1); LYMPHOCYTES ABSOLUTE AUTO 2.13 K/mm3 (0.84-5.20); LYMPHOCYTES PERCENT AUTO 19 % (21-46); MONOCYTES ABSOLUTE AUTO 0.48 K/mm3 (0.16-1.47); MONOCYTES PERCENT AUTO 4 % (4-13); Mean Corpuscular HGB 28.5 pg (26.0-34.0); Mean Corpuscular HGB Conc 30.7 g/dL (31.5-36.5); Mean Corpuscular Volume 93 fL (80-100); Mean Platelet Volume 10.4 fL (9.1-12.4); NEUTROPHILS ABSOLUTE AUTO 7.92 K/mm3 (1.96-9.15); NEUTROPHILS PERCENT AUTO 72 % (41-73); Platelet Count 361 K/mm3 (150-400); RDW Coefficient Variation 16.3 % (11.7-14.2); RDW Standard Deviation 55.4 fL (35.1-46.3); Red Blood Cell Count 3.68 M/mm3 (3.80-5.20); White Blood Cell Count 10.98 K/mm3 (4.00-11.30)
[2024-09-13 17:18] LABS: Albumin, Blood 1.9 g/dL (3.4-5.0); Albumin/Globulin Ratio 0.3 (0.8-1.8); Bilirubin, Total 0.3 mg/dL (0.1-1.0); Bun/Creatinine Ratio 40.3 (12.0-20.0); Calcium, Blood 9.1 mg/dL (8.5-10.1); Creatinine, Blood 0.77 mg/dL (0.40-1.00); Globulin, Blood 5.9 g/dL (2.2-4.0); Potassium, Blood 4.2 mmol/L (3.5-5.5); Total Protein, Blood 7.8 g/dL (6.4-8.2)
[2024-09-13] MEDS ORDERED: Lactated Ringer's 1,000 ML IV SCH (18:25)
[2024-09-13] MEDS ORDERED: NS 1,000 ML IV SCH (18:25)
[2024-09-13] MEDS ORDERED: CefTRIAXone Sodium 2,000 MG in NS 100 ML IV SCH (18:30)
[2024-09-13] MEDS ORDERED: OxyCODONE 5 mg/Acetamin 325 mg TABLET PO PRN (18:30)
[2024-09-13] MEDS ORDERED: LORazepam 1 MG Tab PO PRN (18:35)
[2024-09-13] MEDS ORDERED: Albuterol HFA200 ACT/6.7 GM INH INH PRN (18:45)
[2024-09-13] MEDS ORDERED: Vancomycin HCL 2,500 MG in NS 500 ML IV ONE (18:45)
[2024-09-13] MEDS ORDERED: Sennosides 8.6 MG Tab PO SCH (19:00)
[2024-09-13] MEDS ORDERED: Lactated Ringer's 1,000 ML IV ONE (20:11)
[2024-09-13] MEDS ORDERED: Insulin Glargine-Yfgn 100 Unit/mL 3 ML SYR SC SCH (21:00)
[2024-09-13] MEDS ORDERED: Lactobacil 2-S.Thermo-Bifido 1 1 Cap PO SCH (21:00)
[2024-09-13] MEDS ORDERED: Arginine/Glutamine/Calcium Hmb 1 Packet PO SCH (21:00)
[2024-09-13] MEDS ORDERED: Polyethylene Glycol 3350 17 gm PO SCH (21:00)
[2024-09-13] MEDS ORDERED: Insulin Human Lispro 100 Units/ML 3ML Syringe SC SCH (21:00)
[2024-09-14] MEDS ORDERED: NS 1,000 ML IV SCH (00:45)
[2024-09-14 00:58] VITALS: BP 139/70
[2024-09-14 04:16] VITALS: BP 121/59
[2024-09-14] MEDS ORDERED: OxyCODONE 5 mg/Acetamin 325 mg TABLET PO PRN (06:50)
[2024-09-14] MEDS ORDERED: Piperacillin/Tazobactam Sod 4.5 GM in NS 100 ML IV SCH (07:00)
[2024-09-14 07:10] VITALS: BP 120/59
[2024-09-14] MEDS ORDERED: Vancomycin HCL 1,750 MG in NS 500 ML IV SCH (08:00)
[2024-09-14] MEDS ORDERED: Metoclopramide HCl 10 MG Tab PO SCH (08:30)
[2024-09-14] MEDS ORDERED: Furosemide 20 MG Tab PO SCH (08:58)
[2024-09-14] MEDS ORDERED: Folic Acid 1 MG TAB PO SCH (09:00)
[2024-09-14] MEDS ORDERED: Atorvastatin 40 MG Tab PO SCH (09:00)
[2024-09-14] MEDS ORDERED: Thiamine HCl 100 MG Tab PO SCH (09:00)
[2024-09-14] MEDS ORDERED: Fluconazole 100 MG Tab PO SCH (09:00)
[2024-09-14] MEDS ORDERED: Enoxaparin 40 MG/0.4 ML SYR SC SCH (09:00)
[2024-09-14] MEDS ORDERED: Zinc Oxide Ointment 30 GM TOP PRN (09:10)
[2024-09-14 13:48] VITALS: BP 117/56
--- NOTE | 2024-09-14 14:25 | NUR ---
DISCHARGED TO REHAB. PT LEFT UNIT ON [facility]. TRANSPORTERS GIVEN DC PACKET. ATTEMPTED TO CALL REPORT AT 1406, NO ANSWER WHEN TRANSFERRED TO UNIT. REATTEMPT TO CALL REPORT AT 1427. NO ANSWER.
== END 2024-09-14 14:10 | DRG 872 ==
LOC: ER 15:34 → ERHOLD 18:22 → SURS 18:22
PROVIDERS: Emergency Medicine; ADMIT Family Medicine
PROC: 3E03329 Introduction of Other Anti-infective into Peripheral Vein, Percutaneous Approach (ICD-10-PCS; principal; 2024-09-13)
PROC: 02HV33Z Insertion of Infusion Device into Superior Vena Cava, Percutaneous Approach (ICD-10-PCS; 2024-09-14)
PROC: B548ZZA Ultrasonography of Superior Vena Cava, Guidance (ICD-10-PCS; 2024-09-14)
DX: A41.9 Sepsis, unspecified organism (principal); L03.116 Cellulitis of left lower limb; L02.413 Cutaneous abscess of right upper limb; Z68.41 Body mass index [BMI] 40.0-44.9, adult; E11.52 Type 2 diabetes mellitus with diabetic peripheral angiopathy with gangrene; I96 Gangrene, not elsewhere classified; M86.8X7 Other osteomyelitis, ankle and foot; L03.115 Cellulitis of right lower limb; M60.08 Infective myositis, other site; I10 Essential (primary) hypertension; F17.210 Nicotine dependence, cigarettes, uncomplicated; E66.01 Morbid (severe) obesity due to excess calories; E11.51 Type 2 diabetes mellitus with diabetic peripheral angiopathy without gangrene; D64.9 Anemia, unspecified; L89.159 Pressure ulcer of sacral region, unspecified stage; L89.899 Pressure ulcer of other site, unspecified stage; E78.00 Pure hypercholesterolemia, unspecified; E11.69 Type 2 diabetes mellitus with other specified complication; Z79.84 Long term (current) use of oral hypoglycemic drugs; Z79.4 Long term (current) use of insulin; Z79.899 Other long term (current) drug therapy; Z88.8 Allergy status to other drugs, medicaments and biological substances; Z98.890 Other specified postprocedural states
CPT/HCPCS: 36569; 71260; 80053; 82947; 83605; 83735; 85025; 85651; 86140; 87040; 94640; 94664; 94760; 96365-59; 96366; 96372; 96375; 96376; 99284; 99284-25; A6590; A9270; C1751; G0378; J0696; J1171; J1650; J1815; J1940; J2543; J3370; J7030; J7040; J7050; J7120; Q9967

== ENCOUNTER 2024-10-17 03:43 | Day surgery (SDC) | payer MEDICARE, OTHER ==
[2024-10-17] MEDS ORDERED: Lidocaine HCl 4% Cream 5 GM ONE (13:06)
== END 2024-10-17 22:59 | disposition home or self-care (01) ==
LOC: WOUND 03:43
DX: E11.621 Type 2 diabetes mellitus with foot ulcer (principal); L97.412 Non-pressure chronic ulcer of right heel and midfoot with fat layer exposed; L97.512 Non-pressure chronic ulcer of other part of right foot with fat layer exposed; E11.622 Type 2 diabetes mellitus with other skin ulcer; L97.122 Non-pressure chronic ulcer of left thigh with fat layer exposed; L98.492 Non-pressure chronic ulcer of skin of other sites with fat layer exposed; L89.311 Pressure ulcer of right buttock, stage 1; L89.892 Pressure ulcer of other site, stage 2; E11.42 Type 2 diabetes mellitus with diabetic polyneuropathy; I12.9 Hypertensive chronic kidney disease with stage 1 through stage 4 chronic kidney disease, or unspecified chronic kidney disease; E11.22 Type 2 diabetes mellitus with diabetic chronic kidney disease; N18.2 Chronic kidney disease, stage 2 (mild); Z87.891 Personal history of nicotine dependence; Z88.8 Allergy status to other drugs, medicaments and biological substances
CPT/HCPCS: A6213; A9270; G0463

== ENCOUNTER 2024-11-21 04:30 | Day surgery (SDC) | payer MEDICARE, OTHER ==
[2024-11-21] MEDS ORDERED: Lidocaine HCl 4% Cream 5 GM ONE (12:27)
== END 2024-11-21 22:00 | disposition home or self-care (01) ==
LOC: WOUND 04:30
DX: E11.621 Type 2 diabetes mellitus with foot ulcer (principal); L97.513 Non-pressure chronic ulcer of other part of right foot with necrosis of muscle; L97.512 Non-pressure chronic ulcer of other part of right foot with fat layer exposed; E11.622 Type 2 diabetes mellitus with other skin ulcer; L97.122 Non-pressure chronic ulcer of left thigh with fat layer exposed; L97.812 Non-pressure chronic ulcer of other part of right lower leg with fat layer exposed; L98.492 Non-pressure chronic ulcer of skin of other sites with fat layer exposed; L97.223 Non-pressure chronic ulcer of left calf with necrosis of muscle; L89.322 Pressure ulcer of left buttock, stage 2; E11.42 Type 2 diabetes mellitus with diabetic polyneuropathy; I12.9 Hypertensive chronic kidney disease with stage 1 through stage 4 chronic kidney disease, or unspecified chronic kidney disease; E11.22 Type 2 diabetes mellitus with diabetic chronic kidney disease; N18.2 Chronic kidney disease, stage 2 (mild)
CPT/HCPCS: A6213; A9270

== ENCOUNTER 2024-11-28 00:47 | Day surgery (SDC) | payer MEDICARE, OTHER ==
[2024-11-28] MEDS ORDERED: Lidocaine HCl 4% Cream 5 GM ONE (12:44)
== END 2024-11-28 23:00 | disposition home or self-care (01) ==
LOC: WOUND 00:47
DX: L89.893 Pressure ulcer of other site, stage 3 (principal); E11.621 Type 2 diabetes mellitus with foot ulcer; L97.512 Non-pressure chronic ulcer of other part of right foot with fat layer exposed; L98.492 Non-pressure chronic ulcer of skin of other sites with fat layer exposed; E11.622 Type 2 diabetes mellitus with other skin ulcer; L97.825 Non-pressure chronic ulcer of other part of left lower leg with muscle involvement without evidence of necrosis; L97.822 Non-pressure chronic ulcer of other part of left lower leg with fat layer exposed; L97.122 Non-pressure chronic ulcer of left thigh with fat layer exposed; E11.42 Type 2 diabetes mellitus with diabetic polyneuropathy; I12.9 Hypertensive chronic kidney disease with stage 1 through stage 4 chronic kidney disease, or unspecified chronic kidney disease; E11.22 Type 2 diabetes mellitus with diabetic chronic kidney disease; N18.2 Chronic kidney disease, stage 2 (mild)
CPT/HCPCS: A6213; A9270

== ENCOUNTER 2024-12-05 00:49 | Day surgery (SDC) | payer MEDICARE, OTHER ==
[2024-12-05] MEDS ORDERED: Lidocaine HCl 4% Cream 5 GM ONE (12:53)
== END 2024-12-05 23:04 | disposition home or self-care (01) ==
LOC: WOUND 00:49
DX: L89.893 Pressure ulcer of other site, stage 3 (principal); E11.621 Type 2 diabetes mellitus with foot ulcer; L97.512 Non-pressure chronic ulcer of other part of right foot with fat layer exposed; L98.492 Non-pressure chronic ulcer of skin of other sites with fat layer exposed; L89.894 Pressure ulcer of other site, stage 4; L89.892 Pressure ulcer of other site, stage 2; E11.42 Type 2 diabetes mellitus with diabetic polyneuropathy; I12.9 Hypertensive chronic kidney disease with stage 1 through stage 4 chronic kidney disease, or unspecified chronic kidney disease; E11.22 Type 2 diabetes mellitus with diabetic chronic kidney disease; N18.2 Chronic kidney disease, stage 2 (mild)
CPT/HCPCS: A6213; A9270

== ENCOUNTER 2024-12-12 01:07 | Day surgery (SDC) | payer MEDICARE, OTHER ==
[2024-12-12] MEDS ORDERED: Lidocaine HCl 4% Cream 5 GM ONE (12:48)
== END 2024-12-12 23:00 | disposition home or self-care (01) ==
LOC: WOUND 01:07
DX: E11.621 Type 2 diabetes mellitus with foot ulcer (principal); L97.512 Non-pressure chronic ulcer of other part of right foot with fat layer exposed; L89.893 Pressure ulcer of other site, stage 3; L98.492 Non-pressure chronic ulcer of skin of other sites with fat layer exposed; E11.622 Type 2 diabetes mellitus with other skin ulcer; L97.822 Non-pressure chronic ulcer of other part of left lower leg with fat layer exposed; L89.894 Pressure ulcer of other site, stage 4; L89.892 Pressure ulcer of other site, stage 2; E11.42 Type 2 diabetes mellitus with diabetic polyneuropathy; I12.9 Hypertensive chronic kidney disease with stage 1 through stage 4 chronic kidney disease, or unspecified chronic kidney disease; E11.22 Type 2 diabetes mellitus with diabetic chronic kidney disease; N18.2 Chronic kidney disease, stage 2 (mild)
CPT/HCPCS: A6213; A9270; G0463